=== PATIENT | female | born 1945 | race Caucasian/White ===

== ENCOUNTER 2019-12-20 05:10 | Inpatient (IN) | payer MEDICARE, SELFPAY ==
[2019-12-20] VITALS (53 sets, daily range): BP systolic 105–157; BP diastolic 70–99; PULSE 119–141; RESP 15–37; TEMP 36.2–36.6; O2SAT 89–99; BMI 46.5
--- NOTE | 2019-12-20 05:12 | ED_ITS ---
HPI - SOB/Dyspnea <Mark Flowers DO - Last Filed: 12/21/19 00:46> General Chief Complaint: Upper Respiratory Symptoms Stated Complaint: difficulty breathing Time Seen by Provider: 12/20/19 05:10 Source: patient Mode of arrival: Ambulatory Limitations: no limitations History of Present Illness HPI Narrative: 74F former smoker with chief complaint of 2-3 days of progressive shortness of breath presents with her . She denies dizziness, weakness, or chest pain. She's had no fever, chills, or cough. She denies N/V/D. She denies any history of the same. She denies new medications or dietary change. She denies any exertional change or worsening with laying flat. She denies weight change. MD Complaint: shortness of breath Onset (ago): day(s) Severity: moderate Consistency/Duration: constant Relieving factors: rest Exacerbating factors: nothing Treatment prior to arrival: none Related Data Home oxygen amount: none Home Medications Medication Instructions Recorded Confirmed albuterol sulfate 1 - 4 puff INHALATION Q4HR PRN 12/20/19 12/20/19 amlodipine 5 mg PO DAILY 12/20/19 12/20/19 aspirin 81 mg PO DAILY 12/20/19 12/20/19 hydrochlorothiazide 25 mg PO DAILY 12/20/19 12/20/19 insulin NPH isoph U-100 human See Rx Instructions .ROUTE .COMPLEX 12/20/19 12/20/19 [Humulin N NPH U-100 Insulin] losartan 50 mg PO BID 12/20/19 12/20/19 metformin 1,000 mg PO BID 12/20/19 12/20/19 omeprazole 20 mg PO DAILY 12/20/19 12/20/19 simvastatin 20 mg PO QPM 12/20/19 12/20/19 triamcinolone acetonide 1 applic TOPICAL BID 12/20/19 12/20/19 trospium 20 mg PO BID 12/20/19 12/20/19 Allergies Allergy/AdvReac Type Severity Reaction Status Date / Time clindamycin Allergy Hives Verified 12/20/19 15:41 Penicillins Allergy Hives Verified 12/20/19 15:41 Sulfa (Sulfonamide Allergy Hives Verified 12/20/19 15:41 Antibiotics) lisinopril AdvReac Verified 12/20/19 15:41 Review of Systems <Mark Flowers DO - Last Filed: 12/21/19 00:46> Constitutional Constitutional: Denies chills, Denies fatigue, Denies fever(s), Denies frequent falls, Denies lethargy and Denies weakness Eyes Eyes: Denies change in vision, Denies eye discharge, Denies irritation and Denies loss of vision ENT Ears, Nose, Mouth, and Throat: Denies change in voice, Denies dizziness, Denies neck pain, Denies sore throat and Denies throat swelling Cardiovascular Cardiovascular: Denies chest pain, Denies irregular heart rhythm, Denies lightheadedness, Denies palpitations, Reports dyspnea, Denies dyspnea on exertion and Denies orthopnea Respiratory Respiratory: Denies cough, Reports dyspnea, Denies dyspnea on exertion and Denies wheezing Gastrointestinal Gastrointestinal: Denies abdominal pain, Denies change in bowel habits, Denies diarrhea, Denies nausea and Denies vomiting Musculoskeletal Musculoskeletal: Denies neck pain and Denies numbness Integumentary/Breasts Skin/Breast: Denies pruritus, Denies erythema, Denies rash and Denies wounds Neurologic Neurologic: Denies behavioral changes, Denies confusion, Denies dizziness, Denies frequent falls, Denies loss of vision, Denies numbness and Denies weakness Psychiatric Psychiatric: Denies anxiety, Denies behavioral changes, Denies confusion, Denies depression, Denies homicidal ideation and Denies suicidal ideation Endocrine Endocrine: Denies fatigue, Denies flushing and Denies palpitations Hematologic/Lymphatic Hematologic/Lymphatic: Denies easy bruising Allergic/Immunologic Allergic/Immunologic: Denies urticaria, Denies throat swelling and Denies wheezing Patient History <Mark Flowers DO - Last Filed: 12/21/19 00:46> Medical History (Updated 12/20/19 @ 23:45 by Christina Chávez DO) Asthma (Acute) B12 deficiency (Acute) Carpal tunnel syndrome (Acute) Diabetes mellitus type 2 in obese (Acute) Diabetic polyneuropathy (Acute) GERD (gastroesophageal reflux disease) (Acute) Humeral fracture (Acute) Hyperlipidemia (Acute) Hypertension (Acute) Morbid obesity (Acute) NORM on CPAP (Acute) Osteoarthritis (Acute) Overactive bladder (Acute) Venous insufficiency (Acute) Surgical History (Updated 12/20/19 @ 23:45 by Christina Chávez DO) History of tonsillectomy (Acute) Family History (Updated 12/20/19 @ 23:46 by Christina Chávez DO) Mother No problems noted. Father No problems noted. Social History household members: spouse Smoking Status: Former smoker Smoking Status: Former smoker alcohol intake frequency: 0-2 drinks per day Substance Use Type: does not use Exam <Mark Flowers DO - Last Filed: 12/21/19 00:46> Narrative Exam Narrative: GENERAL: [74] year old patient appears stated age. Well- nourished, well-developed patient, in moderate distress. HEAD: Atraumatic. Normocephalic. EYES: Pupils equal round and reactive. Extraocular motions intact. No scleral icterus. No injection or drainage. ENT: Nose without bleeding, purulent drainage. Throat without erythema, tonsillar hypertrophy or exudate. Airway patent. NECK: Trachea midline. Non tender CARDIOVASCULAR: Tachycardic and irregular rhythm without murmurs, gallops, or rubs. RESPIRATORY: Tachypnea, expiratory wheeze in all watkins. GASTROINTESTINAL: Abdomen soft, non-tender, nondistended. EXTREMITIES: No edema or joint tenderness. BACK: Nontender without deformity or crepitance. No flank tenderness. NEURO: AOx3. SKIN: Pale and clammy Initial Vital Signs Initial Vital Signs: Vital Signs Temperature 97.8 F 12/20/19 05:15 Pulse Rate 140 H 12/20/19 05:15 Respiratory Rate 28 H 12/20/19 05:15 Blood Pressure 157/99 H 12/20/19 05:15 Pulse Oximetry 94 12/20/19 05:15 <Kenya Syde MD - Last Filed: 12/20/19 10:02> Initial Vital Signs Initial Vital Signs: Vital Signs Temperature 97.8 F 12/20/19 05:15 Pulse Rate 140 H 12/20/19 05:15 Respiratory Rate 28 H 12/20/19 05:15 Blood Pressure 157/99 H 12/20/19 05:15 Pulse Oximetry 94 12/20/19 05:15 Scores <Mark Flowers DO - Last Filed: 12/21/19 00:46> PERC Score Age greater than or equal to 50 years: No Heart rate greater than or equal to 100 bpm: Yes Room Air O2 Sat less than 95%: No Unilateral leg swelling: No Recent trauma or surgery: No Hemoptysis: No Prior PE or DVT: No Hormone Use: No Total PERC Score: 1 Wells' Criteria for PE Clinical signs and symptoms of DVT: No PE is #1 Dx or equally likely: No Heart rate > 100: Yes Immobilization at least 3 days or surg in previous 4 weeks: No History of PE or DVT: No Hemoptysis: No Malignancy w/Treatment within 6 months or palliative: No Wells' PE Score total: 1.5 Course <Mark Flowers DO - Last Filed: 12/21/19 00:46> Course Course Narrative: Ddimer elevated, but normal when corrected for age. Orders Ordered: Acetaminophen (Tylenol) 650 mg PO Q6HR PRN PRN Reason: Fever/Mild Pain (1-3) Al Hydrox/Mg Hydrox/Simethicone (Maalox Plus) 30 ml PO Q6HR PRN PRN Reason: Dyspepsia Amlodipine Besylate (Norvasc) 5 mg PO DAILY [facility] Aspirin (Aspirin Chew) 81 mg PO DAILY [facility] Azithromycin (Zithromax) 500 mg PO DAILY [facility] Stop: 12/23/19 08:59 Bisacodyl (Dulcolax) 10 mg CO DAILY PRN PRN Reason: Constipation Calcium Carbonate (Tums) 1,000 mg PO Q4HR PRN PRN Reason: Dyspepsia Dextrose (D50w) 25 gm IV PRN PRN; Protocol PRN Reason: Hypoglycemia Enoxaparin Sodium (Lovenox) 110 mg SUBCUT BID [facility] Last Admin: 12/20/19 21:11 Dose: 110 mg Documented by: TIEN Furosemide (Lasix) 40 mg IV DAILY [facility] Last Admin: 12/20/19 18:03 Dose: 40 mg Documented by: TIEN Guaifenesin (Mucinex) 1,200 mg PO BID [facility] Last Admin: 12/20/19 21:06 Dose: 1,200 mg Documented by: TIEN Amiodarone HCl/Dextrose (Nexterone) 541 mg in 300.56 mls @ 16.7 mls/hr IV CONT [facility]; Protocol Stop: 01/20/20 06:30 Last Admin: 12/20/19 23:56 Dose: 16.7 ml/hr, 16.7 mls/hr Documented by: Titration: 12/20/19 23:56 Dose: 16.7 ml/hr, 16.7 mls/hr Documented by: Admin: 12/20/19 12:57 Dose: 16.7 ml/hr, 16.7 mls/hr Documented by: MICHEAL Ceftriaxone Sodium/Dextrose (Rocephin) 2 gm in 50 mls @ 100 mls/hr IV Q24H [facility] Insulin Aspart (Novolog Flexpen) 0 unit SUBCUT ACHS [facility]; Protocol Last Admin: 12/20/19 21:08 Dose: 2 unit Documented by: TIEN Cosigned by: SAMUEL Admin: 12/20/19 17:19 Dose: 7 unit Documented by: TIEN Cosigned by: SAMUEL Insulin Glargine (Lantus Solostar (Pen)) 45 unit SUBCUT BID [facility] Last Admin: 12/20/19 21:09 Dose: 45 unit Documented by: TIEN Cosigned by: SAMUEL Levalbuterol HCl (Xopenex) 1.25 mg INH Q4H PRN PRN Reason: Shortness Of Breath Last Admin: 12/20/19 14:12 Dose: 1.25 mg Documented by: MELVINAOX Losartan Potassium (Cozaar) 50 mg PO BID [facility] Last Admin: 12/20/19 21:07 Dose: 50 mg Documented by: TIEN Magnesium Chloride (Slow-Mag) 64 mg PO BID [facility] Last Admin: 12/20/19 21:07 Dose: 64 mg Documented by: TIEN Magnesium Hydroxide (Milk Of Magnesia) 30 ml PO DAILY PRN PRN Reason: Constipation Methylprednisolone (Solu-Medrol 125 Mg Vial) 60 mg IV DAILY [facility] Last Admin: 12/20/19 18:03 Dose: 60 mg Documented by: TIEN Metoprolol Tartrate (Lopressor) 50 mg PO Q6HR [facility] Last Admin: 12/20/19 23:55 Dose: 50 mg Documented by: Admin: 12/20/19 17:19 Dose: 50 mg Documented by: TIEN Naloxone HCl (Narcan) 0.2 mg IV Q2MIN PRN PRN Reason: Opiate Reversal Ondansetron HCl (Zofran) 4 mg IV Q8HR PRN PRN Reason: Nausea And Vomiting Oxybutynin Chloride (Ditropan Xl) 5 mg PO DAILY [facility] Pantoprazole Sodium (Protonix) 20 mg PO 0600 [facility] Promethazine HCl (Phenadoz) 12.5 mg CO Q6HR PRN PRN Reason: Nausea And Vomiting Simvastatin (Zocor) 20 mg PO QPM [facility] Discontinued Medications Albuterol/Ipratropium (Duoneb) 3 ml INH NOW ONE Stop: 12/20/19 06:50 Last Admin: 12/20/19 06:58 Dose: 3 ml Documented by: JUAN CARLOS Diltiazem HCl (Cardizem) 20 mg IV NOW ONE Stop: 12/20/19 05:18 Last Admin: 12/20/19 05:31 Dose: 20 mg Documented by: JUAN CARLOS Enoxaparin Sodium (Lovenox) 125 mg SUBCUT BID [facility] Last Admin: 12/20/19 08:44 Dose: 125 mg Documented by: MARY LOU Enoxaparin Sodium (Lovenox) 40 mg SUBCUT DAILY [facility] Furosemide (Lasix) 40 mg IV NOW ONE Stop: 12/20/19 06:50 Last Admin: 12/20/19 06:58 Dose: 40 mg Documented by: JUAN CARLOS Amiodarone HCl/Dextrose (Nexterone) 150 mg in 100 mls @ 600 mls/hr IV NOW ONE; Protocol Stop: 12/20/19 06:02 Last Infusion: 12/20/19 06:27 Dose: 0 mls/hr Documented by: JUAN CARLOS Admin: 12/20/19 06:09 Dose: 600 mls/hr Documented by: JUAN CARLOS Amiodarone HCl/Dextrose (Nexterone) 360 mg in 200 mls @ 33.333 mls/hr IV NOW ONE; Protocol Stop: 12/20/19 11:52 Last Titration: 12/20/19 10:46 Dose: 33.33 mls/hr, 33.33 mls/hr Documented by: MARY LOU Admin: 12/20/19 06:28 Dose: 33.333 mls/hr, 33.33 mls/hr Documented by: JUAN CARLOS Ceftriaxone Sodium/Dextrose (Rocephin) 2 gm in 50 mls @ 100 mls/hr IV NOW ONE Stop: 12/20/19 08:39 Last Infusion: 12/20/19 09:47 Dose: 0 mls/hr Documented by: MARY LOU Admin: 12/20/19 09:13 Dose: 100 mls/hr Documented by: MARY LOU Azithromycin 500 mg/ Dextrose 250 mls @ 250 mls/hr IV NOW ONE Stop: 12/20/19 08:11 Last Infusion: 12/20/19 09:07 Dose: 0 mls/hr Documented by: MARY LOU Admin: 12/20/19 08:43 Dose: 250 mls/hr Documented by: MARY LOU Magnesium Sulfate (Magnesium Sulfate) 2 gm in 50 mls @ 25 mls/hr IV NOW ONE Stop: 12/20/19 10:59 Last Infusion: 12/20/19 10:47 Dose: 25 mls/hr Documented by: MARY LOU Cosigned by: ZACK Admin: 12/20/19 10:27 Dose: 25 mls/hr Documented by: MARY LOU Cosigned by: ERIC Azithromycin 500 mg/ Dextrose 250 mls @ 250 mls/hr IV NOW ONE Stop: 12/20/19 10:14 Last Admin: 12/20/19 12:00 Dose: 250 mls/hr Documented by: MICHEAL Influenza Virus Vaccine (Flu Hd Vaccine) 0.7 ml IM .ONCE ONE Stop: 12/20/19 13:01 Last Admin: 12/20/19 17:20 Dose: Not Given Documented by: TIEN Insulin Human NPH (Humulin N) 66 unit SUBCUT DAILY [facility] Insulin Human NPH (Humulin N) 50 unit SUBCUT BEDTIME [facility] Insulin Human Regular (Humulin R) 10 unit IV NOW ONE Stop: 12/20/19 13:12 Last Admin: 12/20/19 14:50 Dose: 10 unit Documented by: MICHEAL Cosigned by: JENNIFER Metoprolol Tartrate (Lopressor) 5 mg IV Q5M [facility] Stop: 12/20/19 09:11 Last Admin: 12/20/19 09:35 Dose: 5 mg Documented by: MARY LOU Admin: 12/20/19 09:27 Dose: 5 mg Documented by: MARY LOU Admin: 12/20/19 09:11 Dose: 5 mg Documented by: MARY LOU Potassium Chloride (Klor-Con M20) 40 meq PO NOW ONE Stop: 12/20/19 09:01 Last Admin: 12/20/19 09:11 Dose: 40 meq Documented by: KBROTEM Reevaluation(s) Reevaluation #1: Cardizem 20 mg does little to affect the patient's heart rate, however now it appears much more regular and patient is no longer clammy urine significant work of breathing Time: 05:51 Reevaluation #2: patient clinically improved, but HR still 135, given Amio 150 over 10 minutes and drip started. Patient shows little change on Amio, awaiting RT for Gaurav Brand ordered Vital Signs Vital signs: Vital Signs - 8 hr 12/20/19 05:15 12/20/19 06:00 12/20/19 06:31 Temperature 97.8 F Pulse Rate 140 H 141 H 135 H Respiratory Rate 28 H 18 21 Blood Pressure 157/99 H 139/85 Pulse Oximetry 94 92 92 12/20/19 06:33 12/20/19 06:47 12/20/19 07:00 Temperature Pulse Rate 135 H 135 H 135 H Respiratory Rate 22 28 H 22 Blood Pressure 139/87 141/98 H 140/98 H Pulse Oximetry 91 93 99 12/20/19 07:30 12/20/19 08:00 12/20/19 08:30 Temperature Pulse Rate 139 H 139 H 137 H Respiratory Rate 30 H Blood Pressure 150/90 H 135/96 H Pulse Oximetry 93 95 94 12/20/19 09:00 Temperature Pulse Rate 136 H Respiratory Rate 37 H Blood Pressure Pulse Oximetry 93 <Kenya Syed MD - Last Filed: 12/20/19 10:02> Orders Ordered: Acetaminophen (Tylenol) 650 mg PO Q6HR PRN PRN Reason: Fever/Mild Pain (1-3) Al Hydrox/Mg Hydrox/Simethicone (Maalox Plus) 30 ml PO Q6HR PRN PRN Reason: Dyspepsia Amlodipine Besylate (Norvasc) 5 mg PO DAILY [facility] Aspirin (Aspirin Chew) 81 mg PO DAILY [facility] Azithromycin (Zithromax) 500 mg PO DAILY [facility] Stop: 12/23/19 08:59 Bisacodyl (Dulcolax) 10 mg CO DAILY PRN PRN Reason: Constipation Calcium Carbonate (Tums) 1,000 mg PO Q4HR PRN PRN Reason: Dyspepsia Dextrose (D50w) 25 gm IV PRN PRN; Protocol PRN Reason: Hypoglycemia Enoxaparin Sodium (Lovenox) 110 mg SUBCUT BID [facility] Last Admin: 12/20/19 21:11 Dose: 110 mg Documented by: TIEN Furosemide (Lasix) 40 mg IV DAILY [facility] Last Admin: 12/20/19 18:03 Dose: 40 mg Documented by: TIEN Guaifenesin (Mucinex) 1,200 mg PO BID [facility] Last Admin: 12/20/19 21:06 Dose: 1,200 mg Documented by: TIEN Amiodarone HCl/Dextrose (Nexterone) 541 mg in 300.56 mls @ 16.7 mls/hr IV CONT [facility]; Protocol Stop: 01/20/20 06:30 Last Admin: 12/20/19 23:56 Dose: 16.7 ml/hr, 16.7 mls/hr Documented by: Titration: 12/20/19 23:56 Dose: 16.7 ml/hr, 16.7 mls/hr Documented by: Admin: 12/20/19 12:57 Dose: 16.7 ml/hr, 16.7 mls/hr Documented by: MICHEAL Ceftriaxone Sodium/Dextrose (Rocephin) 2 gm in 50 mls @ 100 mls/hr IV Q24H [facility] Insulin Aspart (Novolog Flexpen) 0 unit SUBCUT ACHS [facility]; Protocol Last Admin: 12/20/19 21:08 Dose: 2 unit Documented by: TIEN Cosigned by: SAMUEL Admin: 12/20/19 17:19 Dose: 7 unit Documented by: TIEN Cosigned by: SAMUEL Insulin Glargine (Lantus Solostar (Pen)) 45 unit SUBCUT BID [facility] Last Admin: 12/20/19 21:09 Dose: 45 unit Documented by: TIEN Cosigned by: SAMUEL Levalbuterol HCl (Xopenex) 1.25 mg INH Q4H PRN PRN Reason: Shortness Of Breath Last Admin: 12/20/19 14:12 Dose: 1.25 mg Documented by: MELVINAOX Losartan Potassium (Cozaar) 50 mg PO BID [facility] Last Admin: 12/20/19 21:07 Dose: 50 mg Documented by: TIEN Magnesium Chloride (Slow-Mag) 64 mg PO BID [facility] Last Admin: 12/20/19 21:07 Dose: 64 mg Documented by: TIEN Magnesium Hydroxide (Milk Of Magnesia) 30 ml PO DAILY PRN PRN Reason: Constipation Methylprednisolone (Solu-Medrol 125 Mg Vial) 60 mg IV DAILY [facility] Last Admin: 12/20/19 18:03 Dose: 60 mg Documented by: TIEN Metoprolol Tartrate (Lopressor) 50 mg PO Q6HR [facility] Last Admin: 12/20/19 23:55 Dose: 50 mg Documented by: Admin: 12/20/19 17:19 Dose: 50 mg Documented by: TIEN Naloxone HCl (Narcan) 0.2 mg IV Q2MIN PRN PRN Reason: Opiate Reversal Ondansetron HCl (Zofran) 4 mg IV Q8HR PRN PRN Reason: Nausea And Vomiting Oxybutynin Chloride (Ditropan Xl) 5 mg PO DAILY [facility] Pantoprazole Sodium (Protonix) 20 mg PO 0600 [facility] Promethazine HCl (Phenadoz) 12.5 mg CO Q6HR PRN PRN Reason: Nausea And Vomiting Simvastatin (Zocor) 20 mg PO QPM [facility] Discontinued Medications Albuterol/Ipratropium (Duoneb) 3 ml INH NOW ONE Stop: 12/20/19 06:50 Last Admin: 12/20/19 06:58 Dose: 3 ml Documented by: JUAN CARLOS Diltiazem HCl (Cardizem) 20 mg IV NOW ONE Stop: 12/20/19 05:18 Last Admin: 12/20/19 05:31 Dose: 20 mg Documented by: JUAN CARLOS Enoxaparin Sodium (Lovenox) 125 mg SUBCUT BID [facility] Last Admin: 12/20/19 08:44 Dose: 125 mg Documented by: JEREMYM Enoxaparin Sodium (Lovenox) 40 mg SUBCUT DAILY [facility] Furosemide (Lasix) 40 mg IV NOW ONE Stop: 12/20/19 06:50 Last Admin: 12/20/19 06:58 Dose: 40 mg Documented by: JUAN CARLOS Amiodarone HCl/Dextrose (Nexterone) 150 mg in 100 mls @ 600 mls/hr IV NOW ONE; Protocol Stop: 12/20/19 06:02 Last Infusion: 12/20/19 06:27 Dose: 0 mls/hr Documented by: JUAN CARLOS Admin: 12/20/19 06:09 Dose: 600 mls/hr Documented by: JUAN CARLOS Amiodarone HCl/Dextrose (Nexterone) 360 mg in 200 mls @ 33.333 mls/hr IV NOW ONE; Protocol Stop: 12/20/19 11:52 Last Titration: 12/20/19 10:46 Dose: 33.33 mls/hr, 33.33 mls/hr Documented by: MARY LOU Admin: 12/20/19 06:28 Dose: 33.333 mls/hr, 33.33 mls/hr Documented by: JUAN CARLOS Ceftriaxone Sodium/Dextrose (Rocephin) 2 gm in 50 mls @ 100 mls/hr IV NOW ONE Stop: 12/20/19 08:39 Last Infusion: 12/20/19 09:47 Dose: 0 mls/hr Documented by: MARY LOU Admin: 12/20/19 09:13 Dose: 100 mls/hr Documented by: MARY LOU Azithromycin 500 mg/ Dextrose 250 mls @ 250 mls/hr IV NOW ONE Stop: 12/20/19 08:11 Last Infusion: 12/20/19 09:07 Dose: 0 mls/hr Documented by: MARY LOU Admin: 12/20/19 08:43 Dose: 250 mls/hr Documented by: MARY LOU Magnesium Sulfate (Magnesium Sulfate) 2 gm in 50 mls @ 25 mls/hr IV NOW ONE Stop: 12/20/19 10:59 Last Infusion: 12/20/19 10:47 Dose: 25 mls/hr Documented by: MARY LOU Cosigned by: ZACK Admin: 12/20/19 10:27 Dose: 25 mls/hr Documented by: MARY LOU Cosigned by: ERIC Azithromycin 500 mg/ Dextrose 250 mls @ 250 mls/hr IV NOW ONE Stop: 12/20/19 10:14 Last Admin: 12/20/19 12:00 Dose: 250 mls/hr Documented by: MICHEAL Influenza Virus Vaccine (Flu Hd Vaccine) 0.7 ml IM .ONCE ONE Stop: 12/20/19 13:01 Last Admin: 12/20/19 17:20 Dose: Not Given Documented by: TIEN Insulin Human NPH (Humulin N) 66 unit SUBCUT DAILY [facility] Insulin Human NPH (Humulin N) 50 unit SUBCUT BEDTIME [facility] Insulin Human Regular (Humulin R) 10 unit IV NOW ONE Stop: 12/20/19 13:12 Last Admin: 12/20/19 14:50 Dose: 10 unit Documented by: MICHEAL Cosigned by: JENNIFER Metoprolol Tartrate (Lopressor) 5 mg IV Q5M [facility] Stop: 12/20/19 09:11 Last Admin: 12/20/19 09:35 Dose: 5 mg Documented by: MARY LOU Admin: 12/20/19 09:27 Dose: 5 mg Documented by: MARY LOU Admin: 12/20/19 09:11 Dose: 5 mg Documented by: MARY LOU Potassium Chloride (Klor-Con M20) 40 meq PO NOW ONE Stop: 12/20/19 09:01 Last Admin: 12/20/19 09:11 Dose: 40 meq Documented by: MARY LOU Vital Signs Vital signs: Vital Signs - 8 hr 12/20/19 05:15 12/20/19 06:00 12/20/19 06:31 Temperature 97.8 F Pulse Rate 140 H 141 H 135 H Respiratory Rate 28 H 18 21 Blood Pressure 157/99 H 139/85 Pulse Oximetry 94 92 92 12/20/19 06:33 12/20/19 06:47 12/20/19 07:00 Temperature Pulse Rate 135 H 135 H 135 H Respiratory Rate 22 28 H 22 Blood Pressure 139/87 141/98 H 140/98 H Pulse Oximetry 91 93 99 12/20/19 07:30 12/20/19 08:00 12/20/19 08:30 Temperature Pulse Rate 139 H 139 H 137 H Respiratory Rate 30 H Blood Pressure 150/90 H 135/96 H Pulse Oximetry 93 95 94 12/20/19 09:00 Temperature Pulse Rate 136 H Respiratory Rate 37 H Blood Pressure Pulse Oximetry 93 MDM - SOB/Dyspnea <Mark Flowers DO - Last Filed: 12/21/19 00:46> Lab Data Result diagrams: 12/20/19 05:26 12/20/19 18:07 Labs: Lab Results 12/20/19 12/20/19 12/20/19 Range/Units 05:26 05:26 05:26 WBC 14.4 H (4.5-11.0) X10^3/uL RBC 4.04 (4.0-5.2) X10^6/uL Hgb 12.8 (12.0-16.0) g/dL Hct 37.8 (36-46) % MCV 93.7 (80-100) fL MCH 31.7 (26-34) PG MCHC 33.8 (30-36) % RDW 13.3 (11.6-14.8) % Plt Count 160 (150-400) X10^3/uL Neut % (Auto) 62.8 (50-75) % Lymph % (Auto) 28.5 (25-40) % Dane % (Auto) 7.4 (3-14) % Eos % (Auto) 0.5 L (2-4) % Baso % (Auto) 0.8 (0-2) % Neut # (Auto) 9100 H (8873-3746) /uL Lymph # (Auto) 4100 (9718-0201) /uL Dane # (Auto) 1100 H (0-900) /uL Eos # (Auto) 100 (0-450) /uL Baso # (Auto) 100 (0-100) /uL PT 13.1 H (10.1-12.7) SECONDS INR 1.1 (0.9-1.3) D-Dimer 671 H (<230) ng/mL Sodium 136 L (137-145) mmol/L Potassium 3.7 (3.4-5.1) mmol/L Chloride 102 (98-107) mmol/L Carbon Dioxide 24 (22-32) mmol/L BUN 13 (7-17) mg/dL Creatinine 0.73 (0.52-1.04) mg/dL Estimated GFR > 60.0 (>60) mL/min BUN/Creatinine Ratio 17.8 (6-22) Glucose 356 H (80-110) mg/dL Lactate (0.7-2.1) mmol/L Calcium 9.1 (8.4-10.2) mg/dL Magnesium 1.5 L (1.6-2.3) mg/dL Total Bilirubin 1.9 H (0.2-1.3) mg/dL AST 51 H (14-36) IU/L ALT 43 H (<35) IU/L Alkaline Phosphatase 112 (38-126) U/L Total Creatine Kinase 102 (30-135) U/L CK-MB (CK-2) 1.40 (<2.37) ng/mL CK-MB (CK-2) Rel Index 1.4 L (1.5-5.0) % Troponin I 0.025 (0.01-0.034) ng/mL NT-Pro-B Natriuret Pep (<125) pg/mL Total Protein 6.7 (6.3-8.2) g/dL Albumin 4.1 (3.5-5.0) g/dL Globulin 2.6 (1.7-4.1) g/dL Albumin/Globulin Ratio 1.6 (1.0-2.8) Procalcitonin (<0.5) ng/mL TSH (0.47-4.68) uIU/mL Free T4 (0.78-2.19) ng/dL Urine Color Urine Appearance Urine pH (4.5-8.0) Ur Specific [place] (1.000-1.035) Urine Protein (Negative) Urine Glucose (UA) (Negative) g/dL Urine Ketones (NEGATIVE) Urine Occult Blood (Negative) Urine Nitrate (Negative) Urine Bilirubin (NEGATIVE) Urine Urobilinogen (0.2) E.U./dL Ur Leukocyte Esterase (NEGATIVE) Urine RBC (0-5/HPF) Urine WBC (0-5/HPF) Ur Squamous Epith Cells (0-5/HPF) Amorphous Sediment Urine Bacteria (None) Ur Culture Indicated? COVID-19 PCR (Negative) 12/20/19 12/20/19 12/20/19 Range/Units 05:26 05:26 05:26 WBC (4.5-11.0) X10^3/uL RBC (4.0-5.2) X10^6/uL Hgb (12.0-16.0) g/dL Hct (36-46) % MCV (80-100) fL MCH (26-34) PG MCHC (30-36) % RDW (11.6-14.8) % Plt Count (150-400) X10^3/uL Neut % (Auto) (50-75) % Lymph % (Auto) (25-40) % Dane % (Auto) (3-14) % Eos % (Auto) (2-4) % Baso % (Auto) (0-2) % Neut # (Auto) (1900-0370) /uL Lymph # (Auto) (9372-1059) /uL Dane # (Auto) (0-900) /uL Eos # (Auto) (0-450) /uL Baso # (Auto) (0-100) /uL PT (10.1-12.7) SECONDS INR (0.9-1.3) D-Dimer (<230) ng/mL Sodium (137-145) mmol/L Potassium (3.4-5.1) mmol/L Chloride (98-107) mmol/L Carbon Dioxide (22-32) mmol/L BUN (7-17) mg/dL Creatinine (0.52-1.04) mg/dL Estimated GFR (>60) mL/min BUN/Creatinine Ratio (6-22) Glucose (80-110) mg/dL Lactate (0.7-2.1) mmol/L Calcium (8.4-10.2) mg/dL Magnesium (1.6-2.3) mg/dL Total Bilirubin (0.2-1.3) mg/dL AST (14-36) IU/L ALT (<35) IU/L Alkaline Phosphatase (38-126) U/L Total Creatine Kinase (30-135) U/L CK-MB (CK-2) (<2.37) ng/mL CK-MB (CK-2) Rel Index (1.5-5.0) % Troponin I (0.01-0.034) ng/mL NT-Pro-B Natriuret Pep 1570 H (<125) pg/mL Total Protein (6.3-8.2) g/dL Albumin (3.5-5.0) g/dL Globulin (1.7-4.1) g/dL Albumin/Globulin Ratio (1.0-2.8) Procalcitonin 0.29 (<0.5) ng/mL TSH 5.40 H (0.47-4.68) uIU/mL Free T4 (0.78-2.19) ng/dL Urine Color Urine Appearance Urine pH (4.5-8.0) Ur Specific [place] (1.000-1.035) Urine Protein (Negative) Urine Glucose (UA) (Negative) g/dL Urine Ketones (NEGATIVE) Urine Occult Blood (Negative) Urine Nitrate (Negative) Urine Bilirubin (NEGATIVE) Urine Urobilinogen (0.2) E.U./dL Ur Leukocyte Esterase (NEGATIVE) Urine RBC (0-5/HPF) Urine WBC (0-5/HPF) Ur Squamous Epith Cells (0-5/HPF) Amorphous Sediment Urine Bacteria (None) Ur Culture Indicated? COVID-19 PCR (Negative) 12/20/19 12/20/19 12/20/19 Range/Units 05:26 06:10 08:15 WBC (4.5-11.0) X10^3/uL RBC (4.0-5.2) X10^6/uL Hgb (12.0-16.0) g/dL Hct (36-46) % MCV (80-100) fL MCH (26-34) PG MCHC (30-36) % RDW (11.6-14.8) % Plt Count (150-400) X10^3/uL Neut % (Auto) (50-75) % Lymph % (Auto) (25-40) % Dane % (Auto) (3-14) % Eos % (Auto) (2-4) % Baso % (Auto) (0-2) % Neut # (Auto) (6976-2519) /uL Lymph # (Auto) (7111-6430) /uL Dane # (Auto) (0-900) /uL Eos # (Auto) (0-450) /uL Baso # (Auto) (0-100) /uL PT (10.1-12.7) SECONDS INR (0.9-1.3) D-Dimer (<230) ng/mL Sodium (137-145) mmol/L Potassium (3.4-5.1) mmol/L Chloride (98-107) mmol/L Carbon Dioxide (22-32) mmol/L BUN (7-17) mg/dL Creatinine (0.52-1.04) mg/dL Estimated GFR (>60) mL/min BUN/Creatinine Ratio (6-22) Glucose (80-110) mg/dL Lactate (0.7-2.1) mmol/L Calcium (8.4-10.2) mg/dL Magnesium (1.6-2.3) mg/dL Total Bilirubin (0.2-1.3) mg/dL AST (14-36) IU/L ALT (<35) IU/L Alkaline Phosphatase (38-126) U/L Total Creatine Kinase (30-135) U/L CK-MB (CK-2) (<2.37) ng/mL CK-MB (CK-2) Rel Index (1.5-5.0) % Troponin I (0.01-0.034) ng/mL NT-Pro-B Natriuret Pep (<125) pg/mL Total Protein (6.3-8.2) g/dL Albumin (3.5-5.0) g/dL Globulin (1.7-4.1) g/dL Albumin/Globulin Ratio (1.0-2.8) Procalcitonin (<0.5) ng/mL TSH (0.47-4.68) uIU/mL Free T4 1.20 (0.78-2.19) ng/dL Urine Color Yellow Urine Appearance Clear Urine pH 6.0 (4.5-8.0) Ur Specific [place] 1.010 (1.000-1.035) Urine Protein Negative (Negative) Urine Glucose (UA) 2+ H (Negative) g/dL Urine Ketones 1+ H (NEGATIVE) Urine Occult Blood Trace-lysed (Negative) Urine Nitrate Negative (Negative) Urine Bilirubin Negative (NEGATIVE) Urine Urobilinogen 0.2 (0.2) E.U./dL Ur Leukocyte Esterase Negative (NEGATIVE) Urine RBC 0-1/hpf (0-5/HPF) Urine WBC 1-5/hpf (0-5/HPF) Ur Squamous Epith Cells 0-1 /hpf (0-5/HPF) Amorphous Sediment 1+ Urine Bacteria None seen (None) Ur Culture Indicated? Specimen cultured COVID-19 PCR Negative (Negative) 12/20/19 12/20/19 Range/Units 08:20 08:35 WBC (4.5-11.0) X10^3/uL RBC (4.0-5.2) X10^6/uL Hgb (12.0-16.0) g/dL Hct (36-46) % MCV (80-100) fL MCH (26-34) PG MCHC (30-36) % RDW (11.6-14.8) % Plt Count (150-400) X10^3/uL Neut % (Auto) (50-75) % Lymph % (Auto) (25-40) % Dane % (Auto) (3-14) % Eos % (Auto) (2-4) % Baso % (Auto) (0-2) % Neut # (Auto) (9071-1090) /uL Lymph # (Auto) (1910-5656) /uL Dane # (Auto) (0-900) /uL Eos # (Auto) (0-450) /uL Baso # (Auto) (0-100) /uL PT (10.1-12.7) SECONDS INR (0.9-1.3) D-Dimer (<230) ng/mL Sodium (137-145) mmol/L Potassium (3.4-5.1) mmol/L Chloride (98-107) mmol/L Carbon Dioxide (22-32) mmol/L BUN (7-17) mg/dL Creatinine (0.52-1.04) mg/dL Estimated GFR (>60) mL/min BUN/Creatinine Ratio (6-22) Glucose (80-110) mg/dL Lactate 2.1 (0.7-2.1) mmol/L Calcium (8.4-10.2) mg/dL Magnesium (1.6-2.3) mg/dL Total Bilirubin (0.2-1.3) mg/dL AST (14-36) IU/L ALT (<35) IU/L Alkaline Phosphatase (38-126) U/L Total Creatine Kinase (30-135) U/L CK-MB (CK-2) (<2.37) ng/mL CK-MB (CK-2) Rel Index (1.5-5.0) % Troponin I (0.01-0.034) ng/mL NT-Pro-B Natriuret Pep (<125) pg/mL Total Protein (6.3-8.2) g/dL Albumin (3.5-5.0) g/dL Globulin (1.7-4.1) g/dL Albumin/Globulin Ratio (1.0-2.8) Procalcitonin (<0.5) ng/mL TSH (0.47-4.68) uIU/mL Free T4 (0.78-2.19) ng/dL Urine Color Urine Appearance Urine pH (4.5-8.0) Ur Specific [place] (1.000-1.035) Urine Protein (Negative) Urine Glucose (UA) (Negative) g/dL Urine Ketones (NEGATIVE) Urine Occult Blood (Negative) Urine Nitrate (Negative) Urine Bilirubin (NEGATIVE) Urine Urobilinogen (0.2) E.U./dL Ur Leukocyte Esterase (NEGATIVE) Urine RBC (0-5/HPF) Urine WBC (0-5/HPF) Ur Squamous Epith Cells (0-5/HPF) Amorphous Sediment Urine Bacteria (None) Ur Culture Indicated? COVID-19 PCR Negative (Negative) Urine Dip Bedside Urine Glucose 250 mg/dl Bedside Urine Bilirubin - Negative Bedside Urine Ketone + 15 Urine Specific [place] 1.010 Bedside Urine Occult Blood - Negative Bedside Urine pH 6.0 Bedside Urine Protein - Negative Bedside Urine Urobilinogen +/- 1mg Bedside Urine Nitrite - Negative Bedside Urine Leukocytes - Negative Esterase <Kenya Syed MD - Last Filed: 12/20/19 10:02> Medical Records Attestation: I reviewed the patient's medical records. Lab Data Attestation: I reviewed the patient's lab results. Labs: Lab Results 12/20/19 12/20/19 12/20/19 Range/Units 05:26 05:26 05:26 WBC 14.4 H (4.5-11.0) X10^3/uL RBC 4.04 (4.0-5.2) X10^6/uL Hgb 12.8 (12.0-16.0) g/dL Hct 37.8 (36-46) % MCV 93.7 (80-100) fL MCH 31.7 (26-34) PG MCHC 33.8 (30-36) % RDW 13.3 (11.6-14.8) % Plt Count 160 (150-400) X10^3/uL Neut % (Auto) 62.8 (50-75) % Lymph % (Auto) 28.5 (25-40) % Dane % (Auto) 7.4 (3-14) % Eos % (Auto) 0.5 L (2-4) % Baso % (Auto) 0.8 (0-2) % Neut # (Auto) 9100 H (7151-8203) /uL Lymph # (Auto) 4100 (8994-0767) /uL Dane # (Auto) 1100 H (0-900) /uL Eos # (Auto) 100 (0-450) /uL Baso # (Auto) 100 (0-100) /uL PT 13.1 H (10.1-12.7) SECONDS INR 1.1 (0.9-1.3) D-Dimer 671 H (<230) ng/mL Sodium 136 L (137-145) mmol/L Potassium 3.7 (3.4-5.1) mmol/L Chloride 102 (98-107) mmol/L Carbon Dioxide 24 (22-32) mmol/L BUN 13 (7-17) mg/dL Creatinine 0.73 (0.52-1.04) mg/dL Estimated GFR > 60.0 (>60) mL/min BUN/Creatinine Ratio 17.8 (6-22) Glucose 356 H (80-110) mg/dL Lactate (0.7-2.1) mmol/L Calcium 9.1 (8.4-10.2) mg/dL Magnesium 1.5 L (1.6-2.3) mg/dL Total Bilirubin 1.9 H (0.2-1.3) mg/dL AST 51 H (14-36) IU/L ALT 43 H (<35) IU/L Alkaline Phosphatase 112 (38-126) U/L Total Creatine Kinase 102 (30-135) U/L CK-MB (CK-2) 1.40 (<2.37) ng/mL CK-MB (CK-2) Rel Index 1.4 L (1.5-5.0) % Troponin I 0.025 (0.01-0.034) ng/mL NT-Pro-B Natriuret Pep (<125) pg/mL Total Protein 6.7 (6.3-8.2) g/dL Albumin 4.1 (3.5-5.0) g/dL Globulin 2.6 (1.7-4.1) g/dL Albumin/Globulin Ratio 1.6 (1.0-2.8) Procalcitonin (<0.5) ng/mL TSH (0.47-4.68) uIU/mL Free T4 (0.78-2.19) ng/dL Urine Color Urine Appearance Urine pH (4.5-8.0) Ur Specific [place] (1.000-1.035) Urine Protein (Negative) Urine Glucose (UA) (Negative) g/dL Urine Ketones (NEGATIVE) Urine Occult Blood (Negative) Urine Nitrate (Negative) Urine Bilirubin (NEGATIVE) Urine Urobilinogen (0.2) E.U./dL Ur Leukocyte Esterase (NEGATIVE) Urine RBC (0-5/HPF) Urine WBC (0-5/HPF) Ur Squamous Epith Cells (0-5/HPF) Amorphous Sediment Urine Bacteria (None) Ur Culture Indicated? COVID-19 PCR (Negative) 12/20/19 12/20/19 12/20/19 Range/Units 05:26 05:26 05:26 WBC (4.5-11.0) X10^3/uL RBC (4.0-5.2) X10^6/uL Hgb (12.0-16.0) g/dL Hct (36-46) % MCV (80-100) fL MCH (26-34) PG MCHC (30-36) % RDW (11.6-14.8) % Plt Count (150-400) X10^3/uL Neut % (Auto) (50-75) % Lymph % (Auto) (25-40) % Dane % (Auto) (3-14) % Eos % (Auto) (2-4) % Baso % (Auto) (0-2) % Neut # (Auto) (9092-6160) /uL Lymph # (Auto) (8585-2631) /uL Dane # (Auto) (0-900) /uL Eos # (Auto) (0-450) /uL Baso # (Auto) (0-100) /uL PT (10.1-12.7) SECONDS INR (0.9-1.3) D-Dimer (<230) ng/mL Sodium (137-145) mmol/L Potassium (3.4-5.1) mmol/L Chloride (98-107) mmol/L Carbon Dioxide (22-32) mmol/L BUN (7-17) mg/dL Creatinine (0.52-1.04) mg/dL Estimated GFR (>60) mL/min BUN/Creatinine Ratio (6-22) Glucose (80-110) mg/dL Lactate (0.7-2.1) mmol/L Calcium (8.4-10.2) mg/dL Magnesium (1.6-2.3) mg/dL Total Bilirubin (0.2-1.3) mg/dL AST (14-36) IU/L ALT (<35) IU/L Alkaline Phosphatase (38-126) U/L Total Creatine Kinase (30-135) U/L CK-MB (CK-2) (<2.37) ng/mL CK-MB (CK-2) Rel Index (1.5-5.0) % Troponin I (0.01-0.034) ng/mL NT-Pro-B Natriuret Pep 1570 H (<125) pg/mL Total Protein (6.3-8.2) g/dL Albumin (3.5-5.0) g/dL Globulin (1.7-4.1) g/dL Albumin/Globulin Ratio (1.0-2.8) Procalcitonin 0.29 (<0.5) ng/mL TSH 5.40 H (0.47-4.68) uIU/mL Free T4 (0.78-2.19) ng/dL Urine Color Urine Appearance Urine pH (4.5-8.0) Ur Specific [place] (1.000-1.035) Urine Protein (Negative) Urine Glucose (UA) (Negative) g/dL Urine Ketones (NEGATIVE) Urine Occult Blood (Negative) Urine Nitrate (Negative) Urine Bilirubin (NEGATIVE) Urine Urobilinogen (0.2) E.U./dL Ur Leukocyte Esterase (NEGATIVE) Urine RBC (0-5/HPF) Urine WBC (0-5/HPF) Ur Squamous Epith Cells (0-5/HPF) Amorphous Sediment Urine Bacteria (None) Ur Culture Indicated? COVID-19 PCR (Negative) 12/20/19 12/20/19 12/20/19 Range/Units 05:26 06:10 08:15 WBC (4.5-11.0) X10^3/uL RBC (4.0-5.2) X10^6/uL Hgb (12.0-16.0) g/dL Hct (36-46) % MCV (80-100) fL MCH (26-34) PG MCHC (30-36) % RDW (11.6-14.8) % Plt Count (150-400) X10^3/uL Neut % (Auto) (50-75) % Lymph % (Auto) (25-40) % Dane % (Auto) (3-14) % Eos % (Auto) (2-4) % Baso % (Auto) (0-2) % Neut # (Auto) (3059-1110) /uL Lymph # (Auto) (7414-6856) /uL Dane # (Auto) (0-900) /uL Eos # (Auto) (0-450) /uL Baso # (Auto) (0-100) /uL PT (10.1-12.7) SECONDS INR (0.9-1.3) D-Dimer (<230) ng/mL Sodium (137-145) mmol/L Potassium (3.4-5.1) mmol/L Chloride (98-107) mmol/L Carbon Dioxide (22-32) mmol/L BUN (7-17) mg/dL Creatinine (0.52-1.04) mg/dL Estimated GFR (>60) mL/min BUN/Creatinine Ratio (6-22) Glucose (80-110) mg/dL Lactate (0.7-2.1) mmol/L Calcium (8.4-10.2) mg/dL Magnesium (1.6-2.3) mg/dL Total Bilirubin (0.2-1.3) mg/dL AST (14-36) IU/L ALT (<35) IU/L Alkaline Phosphatase (38-126) U/L Total Creatine Kinase (30-135) U/L CK-MB (CK-2) (<2.37) ng/mL CK-MB (CK-2) Rel Index (1.5-5.0) % Troponin I (0.01-0.034) ng/mL NT-Pro-B Natriuret Pep (<125) pg/mL Total Protein (6.3-8.2) g/dL Albumin (3.5-5.0) g/dL Globulin (1.7-4.1) g/dL Albumin/Globulin Ratio (1.0-2.8) Procalcitonin (<0.5) ng/mL TSH (0.47-4.68) uIU/mL Free T4 1.20 (0.78-2.19) ng/dL Urine Color Yellow Urine Appearance Clear Urine pH 6.0 (4.5-8.0) Ur Specific [place] 1.010 (1.000-1.035) Urine Protein Negative (Negative) Urine Glucose (UA) 2+ H (Negative) g/dL Urine Ketones 1+ H (NEGATIVE) Urine Occult Blood Trace-lysed (Negative) Urine Nitrate Negative (Negative) Urine Bilirubin Negative (NEGATIVE) Urine Urobilinogen 0.2 (0.2) E.U./dL Ur Leukocyte Esterase Negative (NEGATIVE) Urine RBC 0-1/hpf (0-5/HPF) Urine WBC 1-5/hpf (0-5/HPF) Ur Squamous Epith Cells 0-1 /hpf (0-5/HPF) Amorphous Sediment 1+ Urine Bacteria None seen (None) Ur Culture Indicated? Specimen cultured COVID-19 PCR Negative (Negative) 12/20/19 12/20/19 Range/Units 08:20 08:35 WBC (4.5-11.0) X10^3/uL RBC (4.0-5.2) X10^6/uL Hgb (12.0-16.0) g/dL Hct (36-46) % MCV (80-100) fL MCH (26-34) PG MCHC (30-36) % RDW (11.6-14.8) % Plt Count (150-400) X10^3/uL Neut % (Auto) (50-75) % Lymph % (Auto) (25-40) % [place]ane % (Auto) (3-14) % Eos % (Auto) (2-4) % Baso % (Auto) (0-2) % Neut # (Auto) (3122-5850) /uL Lymph # (Auto) (2156-9802) /uL [place]ane # (Auto) (0-900) /uL Eos # (Auto) (0-450) /uL Baso # (Auto) (0-100) /uL PT (10.1-12.7) SECONDS INR (0.9-1.3) D-Dimer (<230) ng/mL Sodium (137-145) mmol/L Potassium (3.4-5.1) mmol/L Chloride (98-107) mmol/L Carbon Dioxide (22-32) mmol/L BUN (7-17) mg/dL Creatinine (0.52-1.04) mg/dL Estimated GFR (>60) mL/min BUN/Creatinine Ratio (6-22) Glucose (80-110) mg/dL Lactate 2.1 (0.7-2.1) mmol/L Calcium (8.4-10.2) mg/dL Magnesium (1.6-2.3) mg/dL Total Bilirubin (0.2-1.3) mg/dL AST (14-36) IU/L ALT (<35) IU/L Alkaline Phosphatase (38-126) U/L Total Creatine Kinase (30-135) U/L CK-MB (CK-2) (<2.37) ng/mL CK-MB (CK-2) Rel Index (1.5-5.0) % Troponin I (0.01-0.034) ng/mL NT-Pro-B Natriuret Pep (<125) pg/mL Total Protein (6.3-8.2) g/dL Albumin (3.5-5.0) g/dL Globulin (1.7-4.1) g/dL Albumin/Globulin Ratio (1.0-2.8) Procalcitonin (<0.5) ng/mL TSH (0.47-4.68) uIU/mL Free T4 (0.78-2.19) ng/dL Urine Color Urine Appearance Urine pH (4.5-8.0) Ur Specific [place] (1.000-1.035) Urine Protein (Negative) Urine Glucose (UA) (Negative) g/dL Urine Ketones (NEGATIVE) Urine Occult Blood (Negative) Urine Nitrate (Negative) Urine Bilirubin (NEGATIVE) Urine Urobilinogen (0.2) E.U./dL Ur Leukocyte Esterase (NEGATIVE) Urine RBC (0-5/HPF) Urine WBC (0-5/HPF) Ur Squamous Epith Cells (0-5/HPF) Amorphous Sediment Urine Bacteria (None) Ur Culture Indicated? COVID-19 PCR Negative (Negative) Urine Dip Bedside Urine Glucose 250 mg/dl Bedside Urine Bilirubin - Negative Bedside Urine Ketone + 15 Urine Specific [place] 1.010 Bedside Urine Occult Blood - Negative Bedside Urine pH 6.0 Bedside Urine Protein - Negative Bedside Urine Urobilinogen +/- 1mg Bedside Urine Nitrite - Negative Bedside Urine Leukocytes - Negative Esterase Imaging Data Chest x-ray: Attestation: I personally reviewed and interpreted this imaging study as follows: My Impression: Bilateral pleural effusions, hilar adenopathy, interstitial findings consistent with congestive heart failure CT scan - chest: Radiologist's Impression: No pulmonary embolus Pulmonary edema with pleural effusions Sub segmental atelectasis and multiple subcentimeter inflammatory appearing nodules within the bilateral upper lobes favoring bronchopneumonia Hiatal hernia with distal esophageal circumferential wall thickening with subcentimeter paraesophageal lymph nodes Subcarinal and hilar lymphadenopathy Upper abdominal lymphadenopathy Neoplastic/lymphoma requires exclusion Endoscopy is recommended to assess for esophageal neoplasm Corazon Landa, DO ECG Data Attestation: I personally reviewed and interpreted this ECG as follows: Interpretation: #1 Rapid narrow complex rhythm at 143 Left axis deviation No acute ST T wave changes #2 Rapid narrow complex rhythm at 141 (minimal change post diltiazem) 2-1 atrial flutter No acute changes MDM Narrative Medical decision making narrative: 74-year-old woman initially seen by Dr. Flowers. Care is assumed. Increasing dyspnea and orthopnea. No fevers or cough. Labs have the slightly elevated white blood cell count, chest x-ray with patchy interstitial findings with small pleural effusions. She is in atrial fibrillation and it seems that this is probably been for approximately 3 days with a rapid ventricular rate. She did not slow significantly with diltiazem and amiodarone was given. BNP is elevated consistent with congestive heart failure. Entire clinical picture is consistent with new atrial fibrillation with rapid ventricular response for an extended period of time with moderate co ngestive heart failure in increasing orthopnea. Initial Covid test is negative. She has been given Lasix as well as a nebulizer. Her is currently going back to their hotel to get all of her morning medications which include insulin and blood pressure medications. She is currently in no acute distress definitely denies fevers or myalgias, changed to taste or smell or productive cough. She and her are visiting from [facility] were staying on [facility] and she began noticing the dyspnea yesterday. She is not aware of the rapid heart rates with unclear how long this has been present 820 CT scan is reviewed. No pulmonary embolism. Concern for bilateral pneumonia. Ceftriaxone and Zithromax are added as well as lactate and blood cultures. Confirmatory PCR testing for Covid to confirm the initial negative test as well as full panel PCR lung screening are also repeated. Adenopathy concerning for neoplasm is noted on CT scan with lymphadenopathy. Possible lymphoma and esophageal wall thickening also noted so possibility of esophageal cancer is entertained. Patient remains clinically stable. Will need to be admitted to the hospitalist service 9am reviewed with Dr. Chávez. Will admit the patient. Requests oral potassium supplementation, magnesium 2 g IV and a trial of Lopressor to see if the rate can be decreased at all. Will facilitate its all of these and anticipate transfer to the floor Discharge Plan Departure Patient Disposition: Admitted As Inpatient Clinical Impression: Atrial flutter with rapid ventricular response, Adenopathy, hilar Congestive heart failure Qualifiers: Heart failure type: unspecified Heart failure chronicity: acute Qualified Code(s): I50.9 - Heart failure, unspecified Bilateral pneumonia Qualifiers: Pneumonia type: due to unspecified organism Lung location: unspecified part of lung Qualified Code(s): J18.9 - Pneumonia, unspecified organism Discharge Date/Time: 12/20/19 10:49 Admit Date/Time: 12/20/19 09:07 Admit Provider: Christina Chávez ED Sign-out <Mark Flowers DO - Last Filed: 12/21/19 00:46> Cosign ED Attending Cosignature Attestation: I was immediately available in the department for consultation. This documentation has been reviewed and I agree with assessment and plan. Supervised by Mark Flowers DO
--- NOTE | 2019-12-20 05:17 | DI.RAD.S_ITS ---
PROCEDURE: XR CHEST 1V INDICATIONS: Shortness of breath, fatigue TECHNIQUE: One view of the chest was acquired. COMPARISON: [facility], CT, CT ANGIO CHEST PE PROTOCOL, 12/20/2019, 6:33. FINDINGS: Surgical changes and devices: None. Lungs and pleura: There is cephalization of the pulmonary vasculature and interstitial prominence concerning for CHF/fluid overload.. No pleural effusions or pneumothorax. Mediastinum: Mediastinal contours appear normal. Heart mildly enlarged Bones and chest wall: No suspicious bony lesions. Overlying soft tissues appear unremarkable. IMPRESSION: Mild CHF/fluid overload. Dictated by: Mariza Sanchez MD, PhD on 12/20/2019 at 8:27 Approved by: Mariza Sanchez MD, PhD on 12/20/2019 at 8:29
[2019-12-20] MEDS: dilTIAZem 5 MG/ML SDV 20 MG IV (05:31)
[2019-12-20 05:37] LABS: Add Manual Diff / Slide Review NO; Basophils Absolute Auto 100 /uL (0-100); Basophils Percent Auto 0.8 % (0-2); Eosinophils Absolute Auto 100 /uL (0-450); Eosinophils Percent Auto 0.5 % (2-4); Hematocrit 37.8 % (36-46); Hemoglobin 12.8 g/dL (12.0-16.0); Lymphocytes Absolute Auto 4100 /uL (1100-4500); Lymphocytes Percent Auto 28.5 % (25-40); Mean Corpuscular HGB Conc 33.8 % (30-36); Mean Corpuscular Hemoglobin 31.7 PG (26-34); Mean Corpuscular Volume 93.7 fL (80-100); Monocytes Absolute Auto 1100 /uL (0-900); Monocytes Percent Auto 7.4 % (3-14); Neutrophils Absolute Auto 9100 /uL (1500-7000); Neutrophils Percent Auto 62.8 % (50-75); Platelet Count 160 X10^3/uL (150-400); Red Blood Cell Count 4.04 X10^6/uL (4.0-5.2); Red Cell Distribution Width 13.3 % (11.6-14.8); White Blood Cell Count 14.4 X10^3/uL (4.5-11.0)
[2019-12-20 05:42] LABS: INR 1.1 (0.9-1.3); Prothrombin Time 13.1 SECONDS (10.1-12.7)
[2019-12-20 05:44] LABS: Alanine Aminotransferase 43 IU/L (<35); Albumin 4.1 g/dL (3.5-5.0); Albumin Globulin Ratio 1.6 (1.0-2.8); Alkaline Phosphatase 112 U/L (38-126); Aspartate Aminotransferase 51 IU/L (14-36); BUN Creatinine Ratio 17.8 (6-22); Bilirubin Total 1.9 mg/dL (0.2-1.3); Blood Urea Nitrogen 13 mg/dL (7-17); Calcium 9.1 mg/dL (8.4-10.2); Carbon Dioxide 24 mmol/L (22-32); Chloride 102 mmol/L (98-107); Creatine Kinase 102 U/L (30-135); Estimated Glomerular Filt Rate > 60.0 mL/min (>60); Globulin 2.6 g/dL (1.7-4.1); Glucose 356 mg/dL (80-110); HEMOLYSIS < 15 (0-50); Magnesium 1.5 mg/dL (1.6-2.3); Potassium 3.7 mmol/L (3.4-5.1); Sodium 136 mmol/L (137-145); Total Protein 6.7 g/dL (6.3-8.2)
[2019-12-20 05:45] LABS: D Dimer 671 ng/mL (<230)
[2019-12-20 05:56] LABS: Troponin I 0.025 ng/mL (0.01-0.034)
[2019-12-20 05:59] LABS: CKMB % Relative Index 1.4 % (1.5-5.0)
[2019-12-20] MEDS: AMIODARONE 150 MG/100 ML PIGGYBACK 600 MG IV (06:09)
[2019-12-20 06:21] LABS: NT-proBNP (BNP-Adult 18+) 1570 pg/mL (<125)
[2019-12-20] MEDS: AMIODARONE 360 MG/200 ML PIGGYBACK 33.33 MG IV (06:28)
[2019-12-20 06:32] LABS: COVID19 -Nasal RAPID Negative (Negative)
--- NOTE | 2019-12-20 06:57 | DI.CT.S_ITS ---
PROCEDURE: CT ANGIO CHEST PE PROTOCOL INDICATIONS: tachycardia, elevated DDimer, tachpnea TECHNIQUE: After the administration of intravenous contrast, 2 mm thick sections acquired from the pulmonary apices to the posterior costophrenic angles. 3-dimensional maximum intensity projection (MIP) coronal and sagittal reformats were then acquired through the thorax. For radiation dose reduction, the following was used: automated exposure control, adjustment of mA and/or kV according to patient size. COMPARISON: [facility], CR, XR CHEST 1V, 12/20/2019, 5:20. FINDINGS: Image quality: Excellent. Pulmonary arteries: Pulmonary arteries are normal in size, and demonstrate no intraluminal filling defects to suggest central pulmonary embolism. Lungs and pleura: Multiple areas of patchy and nodular opacities are present within the lungs predominantly on the right. Mild bibasilar pleural effusions are present, right greater than left. There is an overall appearance of increased pulmonary vascularity. Mediastinum: Heart size is mildly enlarged, without pericardial effusion. Multiple mediastinal and hilar lymph nodes are present. Many are enlarged including a 26 mm right hilar lymph node. Thoracic aorta is normal in caliber and enhancement. Esophagus demonstrates diffuse distal thickening, with hiatal hernia. Bones and chest wall: No suspicious bony lesions. Ribs and thoracic spine appear intact throughout. Thyroid gland is unremarkable . No axillary or supraclavicular adenopathy. Abdomen: Enlarged lymph nodes are noted within the partially visualized superior mediastinum particularly within the epigastric, itzel hepatis as well as peripancreatic regions. Otherwise, visualized upper abdominal solid organs appear normal in the early arterial phase of enhancement. IMPRESSION: 1. No pulmonary embolism. 2. Mild effusions with increased vascularity suggestive of pulmonary edema. 3. Multiple areas of patchy and nodular opacity particularly on the right as above. Overall appearance is suspicious for infection or inflammation such as pneumonia. Recommend interval follow up after appropriate therapy to document resolution. 4. Hiatal hernia with distal esophageal thickening. Distal esophagus is circumferentially thicker than typically expected even with hiatal hernia. Upper GI or endoscopy is recommended for further evaluation. 5. Mediastinal, hilar and upper abdominal adenopathy are identified. While this could be reactive in nature, neoplastic etiologies cannot be excluded. The above findings are concordant with preliminary report. Dictated by: Helen Cisneros M.D. on 12/20/2019 at 8:02 Approved by: Helen Cisneros M.D. on 12/20/2019 at 8:07
[2019-12-20] MEDS: FUROSEMIDE 40 MG/4 ML VIAL IV ×2 (06:58→18:03)
[2019-12-20] MEDS: ALBUTEROL/IPRATROPIUM 3 ML AMPUL INH (06:58)
--- NOTE | 2019-12-20 07:36 | PC.NURSE ---
Amidodarone gtt infusing.
[2019-12-20 08:24] LABS: Appearance Urine UA CLEAR; Bacteria Urine None Seen; Bilirubin Urine UA NEGATIVE (NEGATIVE); Color Urine UA YELLOW; Glucose Urine UA 2+ g/dL (Negative); Ketones Urine UA 1+ (NEGATIVE); Leukocyte Esterase Urine UA NEGATIVE (NEGATIVE); Nitrite Urine UA NEGATIVE (Negative); Occult Blood Urine UA TRACE-LYSED (Negative); Protein Urine UA NEGATIVE (Negative); Urobilinogen Urine UA 0.2 E.U./dL (0.2)
[2019-12-20 08:31] LABS: Amorphous Sediment Urine 1+; Culture Indicated Urine Specimen Cultured; RBC Urine 0-1/HPF (0-5/HPF); Squamous Epithelial Cell Urine 0-1 /HPF (0-5/HPF); WBC Urine 1-5/HPF (0-5/HPF)
[2019-12-20] MEDS: AZITHROMYCIN 500 MG in DEXTROSE 5% IN WATER 250 ML IV ×2 (08:43→12:00)
[2019-12-20] MEDS: ENOXAPARIN 150 MG/ML SYRINGE 125 MG SUBCUT (08:44)
[2019-12-20 08:46] LABS: Lactate (Lactic Acid) 2.1 mmol/L (0.7-2.1)
--- NOTE | 2019-12-20 09:04 | PC.NURSE ---
Pt took 45 units of her insulin,Dr Syed aware and instructed pt to take 45 units rather than her normal 66 units
[2019-12-20] MEDS: METOPROLOL TARTRATE 5 MG/5 ML INJ IV ×3 (09:11→09:35)
[2019-12-20] MEDS: POTASSIUM CHLORIDE 20 MEQ TAB 40 MEQ PO (09:11)
[2019-12-20] MEDS: CEFTRIAXONE 2 GM/50 ML FROZ.PIGGY IV (09:13)
[2019-12-20 09:16] LABS: Procalcitonin 0.29 ng/mL (<0.5)
--- NOTE | 2019-12-20 09:24 | PC.NURSE ---
post metoprolol push given
--- NOTE | 2019-12-20 09:33 | PC.NURSE ---
following 2nd dose metoprolol.
[2019-12-20 09:36] LABS: COVID19 -Nasal RAPID Negative (Negative)
--- NOTE | 2019-12-20 09:42 | PC.NURSE ---
following 3rd dose metoprolol
--- NOTE | 2019-12-20 09:42 | PC.NURSE ---
pt is tachypnic rate 27,appears SOB without exertion.
[2019-12-20] MEDS: MAGNESIUM SULFATE 2 GM/50 ML PIGGYBACK IV (10:27)
[2019-12-20 10:35] LABS: Reflexed Lactate in 2 Hours Y
[2019-12-20 11:43] LABS: Lactate 2HR (Lactic Acid Rflx) 1.9 mmol/L (0.7-2.1)
--- NOTE | 2019-12-20 11:52 | PC.NURSE ---
Admission Arrived from ER, able to pivot to Bed, SOB with any exertion. HR 120's, Tele placed. Pt is on RA, Spo2 95% at present, unable to speak sentences Home med list will be coming via email per spouse, who is at bedside. Pt is A/o x4, RINCON.
--- NOTE | 2019-12-20 12:02 | DI.ECHO.S_ITS ---
[facility] +---------+ : : [address] : [address] : : : : [id number] : : : : Phone: [phone] Echocardiogram Report + + :Name: RONEL CHACON Study Date: 12/21/2019 Height: 65 in : :[facility] Weight: 280 lb : : Gender: Female BSA: 2.3 m2 : :: 1945 Age: 74 yrs BP: 138/77 mmHg: :Reason For Study: AFIB WITH RVR : :Ordering Physician: JUNI, : :BEAU Performed By: Colette Enriquez : :Referring: BEAU ALFREDO : + + Interpretation Summary 1) Normal left ventricular thickness, size, wall motion, and systolic function (EF 55-60%). 2) The right ventricle is mildly dilated. Right ventricular systolic function is at the lower limits of normal. 3) The left atrium is moderately dilated. 4) No significant valvular abnormalities. 5) No prior Echo available for comparison. Procedure: A two-dimensional transthoracic echocardiogram with color flow and Doppler was performed. The study quality was technically adequate. There is no prior echocardiogram noted for this patient. Left Ventricle: The left ventricle is normal in size and wall thickness. The ejection fraction is estimated to be 55-60%. Left ventricular systolic function is normal without focal wall motion abnormalities. Diastolic function could not be accurately assessed due to atrial fibrillation. Right Ventricle: The right ventricle is mildly dilated. Right ventricular systolic function is at the lower limits of normal. Atria: The left atrium is moderately dilated. Right atrial size is normal. There is no Doppler evidence for an interatrial shunt. Mitral Valve: There is mild mitral annular calcification. There is mild mitral regurgitation. Aortic Valve: The aortic valve is grossly normal. The aortic valve is trileaflet. The aortic valve opens well. There is no aortic valve stenosis. There is trace aortic regurgitation. Tricuspid Valve: The tricuspid valve is not well visualized, but is grossly normal. Pulmonary artery pressures cannot be estimated because of the lack of a measurable TR jet velocity but the IVC suggests a CVP of around 8 mmHg. There is trace tricuspid regurgitation. Pulmonic Valve: The pulmonic valve is not well seen, but is grossly normal. There is trace pulmonic regurgitation. Great Vessels: The aortic root is normal size. The ascending aorta could not be visualized. The IVC is dilated (diameter is greater than 2.1 cm) yet it collapses greater than 50% with a sniff. This suggests a right atrial pressure of 8 mm Hg. Pericardium/ Pleura There is no pericardial effusion. There is no pleural effusion. MMode/2D Measurements & Calculations LVIDd: 4.2 cm LVOT diam: 2.0 cm LVIDs: 3.2 cm Ao root diam: 3.1 cm FS: 24.4 % Ao Arch Diam (Prox Trans): 2.7 cm EPSS: 0.89 cm IVSd: 0.85 cm LVPWd: 0.91 cm LV silva. diameter/BSA (cm/m^2): 1.8 LV sys. diameter/BSA (cm/m^2): 1.4 LA A2 area: 23.2 cm2 RA long axis: 5.2 cm LA A4 area: 25.8 cm2 RA area: 21.0 cm2 LA length (vol): 6.3 cm RA vol: 72.7 ml LA vol: 80.5 ml RA : 31.8 ml/m2 LA vol index: 35.3 ml/m2 IVC diam: 2.4 cm RVD1 (basal): 4.2 cm TAPSE: 1.7 cm Doppler Measurements & Calculations Ao V2 max: 108.3 cm/sec LVOT Max Truman: 82.5 cm/sec Ao V2 mean: 73.6 cm/sec LV V1 max P.7 mmHg Ao max P.7 mmHg LV V1 VTI: 13.5 cm Ao mean P.5 mmHg CECE(I,D): 2.4 cm2 Ao V2 VTI: 17.8 cm CECE(V,D): 2.5 cm2 sev ratio: 0.76 CECE indexed to BSA (cm^2/m^2): 1.1 MV E max truman: 138.9 cm/sec PA V2 max: 50.8 cm/sec MV A max truman: 1.8 cm/sec PA V2 mean: 35.3 cm/sec MV E/A: 75.8 PA mean P.56 mmHg Med Peak E' Truman: 5.1 cm/sec PA pr(Accel): 35.3 mmHg E/E' med: 27.4 Lat Peak E' Truman: 8.6 cm/sec E/E' lat: 16.2 E/e' average: 21.8 MV dec time: 0.19 sec SV(LVOT): 43.5 ml Reading Physician:01:57 PM
[2019-12-20] MEDS: AMIODARONE 541 MG/300.56 ML PIGGYBACK 16.7 MG IV ×2 (12:57→23:56)
[2019-12-20] MEDS: LEVALBUTEROL 1.25 MG/0.5 ML NEB INH (14:12)
[2019-12-20 14:40] LABS: Creatine Kinase 91 U/L (30-135)
[2019-12-20] MEDS: INSULIN REGULAR 100 UNIT/ML 3 ML VIAL 10 UNIT IV (14:50)
[2019-12-20 14:53] LABS: Troponin I 0.015 ng/mL (0.01-0.034)
[2019-12-20] MEDS: METOPROLOL IR 50 MG TABLET PO ×2 (17:19→23:55)
[2019-12-20] MEDS: INSULIN ASPART 100 UNIT/ML INSULN PEN SUBCUT ×2 (17:19→21:08)
--- NOTE | 2019-12-20 17:27 | P.HP_ITS ---
History of Present Illness History of Present Illness Date Patient Seen: 12/20/19 Chief complaint: difficulty breathing Narrative: Brenda Schreiber 74-year-old female who is a poor historian with a past medical history significant for hypertension, hyperlipidemia, diabetes mellitus type 2, insulin using, with polyneuropathy, NORM on CPAP, GERD, asthma, and overactive bladder who presented to the ED complaining of 1-2 days of progressive worsening shortness of breath. The patient is from [place], [place] and was visiting [facility] when she began having shortness of breath. She reports congestion in her chest, wheezing, shortness of breath at rest, dyspnea on exertion and o rthopnea. She does endorse dry nonproductive cough. She denies headache, sore throat, rhinitis, chest pain, fever, chills, back pain, extremity pain, dysuria, diarrhea or constipation. She endorses feeling clammy/diaphoretic and has a cool towel on forehead. She denies sick contacts or exposure to COVID-19. She has no history of atrial fibrillation or congestive heart failure. She has mild conversational dyspnea and audible wheezing during interview. The patient reports she does not feel that bad but appears clearly ill. ED course: Patient was found to be in atrial fibrillation with RVR in the 140s. Received diltiazem 20 mg IV x1 without improvement in heart rate. Chest x-ray performed demonstrated mild pulmonary vascular congestion and edema with probable CHF. Received Lasix 40 mg IV x1. Received amiodarone bolus and started on amiodarone gtt and was in 2:1 atrial flutter with little change in rapid ventricular rate. CTA chest was performed in ruled out pulmonary embolism and demonstrated bilateral pneumonia. Performed blood cultures, lactic acid, and received ceftriaxone 2 g IV x1 and azithromycin 500 mg IV x1. Patient was admitted as an inpatient for atrial fibrillation with RVR, CHF, pneumonia and asthma exacerbation. PCP is Dr. Garcia in [place], [place] Patient History Medical History (Updated 12/20/19 @ 23:45 by Christina Chávez DO) Asthma (Acute) B12 deficiency (Acute) Carpal tunnel syndrome (Acute) Diabetes mellitus type 2 in obese (Acute) Diabetic polyneuropathy (Acute) GERD (gastroesophageal reflux disease) (Acute) Humeral fracture (Acute) Hyperlipidemia (Acute) Hypertension (Acute) Morbid obesity (Acute) NORM on CPAP (Acute) Osteoarthritis (Acute) Overactive bladder (Acute) Venous insufficiency (Acute) Surgical History (Updated 12/20/19 @ 23:45 by Christina Chávez DO) History of tonsillectomy (Acute) Family & Social History Family History (Updated 12/21/19 @ 08:11 by Christina Chávez DO) Mother Heart disease Father Heart disease Social History: household members spouse Prior Living Arrangements House Safety & Behavioral: Feels Safe in Current Yes Environment Been Physically Hurt or No Threatened By a Person Suicidal Ideation Description None Suicide Plan Description No Plan Tobacco & Substance use: Smoking Status Former smoker, 1/2 ppd x 20 years alcohol intake frequency occasional 1-2 drinks a month Substance Use Type does not use The patient has been to her current spouse for 7 years. The patient was previously for 36 years and now . She has 2 sons and 1 daughter who are all healthy. 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 Meds Home Medications and Allergies Home Medications Medication Instructions Recorded Confirmed Type albuterol sulfate 1 - 4 puff INHALATION Q4HR PRN 12/20/19 12/20/19 History amlodipine 5 mg PO DAILY 12/20/19 12/20/19 History aspirin 81 mg PO DAILY 12/20/19 12/20/19 History hydrochlorothiazide 25 mg PO DAILY 12/20/19 12/20/19 History insulin NPH isoph U-100 human See Rx Instructions .ROUTE .COMPLEX 12/20/19 12/20/19 History [Humulin N NPH U-100 Insulin] losartan 50 mg PO BID 12/20/19 12/20/19 History metformin 1,000 mg PO BID 12/20/19 12/20/19 History omeprazole 20 mg PO DAILY 12/20/19 12/20/19 History simvastatin 20 mg PO QPM 12/20/19 12/20/19 History triamcinolone acetonide 1 applic TOPICAL BID 12/20/19 12/20/19 History trospium 20 mg PO BID 12/20/19 12/20/19 History Allergies Allergy/AdvReac Type Severity Reaction Status Date / Time clindamycin Allergy Hives Verified 12/20/19 15:41 Penicillins Allergy Hives Verified 12/20/19 15:41 Sulfa (Sulfonamide Allergy Hives Verified 12/20/19 15:41 Antibiotics) lisinopril AdvReac Verified 12/20/19 15:41 Review of Systems Review of Systems Narrative: A 10 system comprehensive review of systems was conducted with the patient and found to be negative except as above in the History of Present Illness. Exam Vital Signs (past 8 hours): - 12/20/19 09:30 12/20/19 09:31 12/20/19 09:35 Temperature Pulse Rate 131 H 129 H 129 H Respiratory Rate 28 H 27 H 25 H Blood Pressure 106/75 106/75 109/71 Pulse Oximetry 92 91 90 L 12/20/19 09:40 12/20/19 09:45 12/20/19 10:00 Temperature Pulse Rate 125 H 129 H 124 H Respiratory Rate 28 H 31 H 25 H Blood Pressure 113/78 115/75 115/74 Pulse Oximetry 91 92 89 L 12/20/19 10:30 12/20/19 10:31 12/20/19 10:33 Temperature Pulse Rate 127 H 129 H 128 H Respiratory Rate 31 H 34 H 30 H Blood Pressure 105/78 Pulse Oximetry 93 92 92 12/20/19 10:34 12/20/19 10:45 12/20/19 11:03 Temperature Pulse Rate 125 H 129 H 129 H Respiratory Rate 28 H 29 H Blood Pressure 105/78 111/83 Pulse Oximetry 92 94 12/20/19 11:09 12/20/19 11:10 12/20/19 11:30 Temperature 97.2 F L Pulse Rate 130 H 127 H 128 H Respiratory Rate 15 30 H 25 H Blood Pressure 127/73 127/73 116/84 Pulse Oximetry 93 99 94 12/20/19 11:31 12/20/19 12:00 12/20/19 12:25 Temperature Pulse Rate 127 H 127 H Respiratory Rate 26 H 22 Blood Pressure 116/84 130/77 Pulse Oximetry 94 91 94 12/20/19 12:30 12/20/19 12:43 12/20/19 12:49 Temperature Pulse Rate 127 H 128 H Respiratory Rate 25 H 28 H Blood Pressure 125/87 Pulse Oximetry 93 94 93 12/20/19 13:00 12/20/19 13:20 12/20/19 13:21 Temperature Pulse Rate 128 H 129 H 127 H Respiratory Rate 27 H 33 H 27 H Blood Pressure 114/85 114/85 Pulse Oximetry 93 94 93 12/20/19 13:30 12/20/19 13:38 12/20/19 14:00 Temperature Pulse Rate 128 H 128 H 127 H Respiratory Rate 26 H 29 H 22 Blood Pressure 147/80 H Pulse Oximetry 92 93 91 12/20/19 14:17 12/20/19 14:20 12/20/19 14:24 Temperature Pulse Rate 126 H 125 H 127 H Respiratory Rate 26 H 23 27 H Blood Pressure 128/70 128/70 Pulse Oximetry 94 92 96 12/20/19 14:30 12/20/19 15:00 12/20/19 15:17 Temperature Pulse Rate 129 H 127 H 129 H Respiratory Rate 24 21 27 H Blood Pressure 121/89 Pulse Oximetry 92 93 94 12/20/19 15:24 12/20/19 15:30 12/20/19 16:00 Temperature Pulse Rate 128 H 130 H 129 H Respiratory Rate 23 30 H 23 Blood Pressure 121/89 Pulse Oximetry 96 91 12/20/19 16:06 Temperature Pulse Rate 129 H Respiratory Rate 26 H Blood Pressure 127/78 Pulse Oximetry 93 Oxygen Delivery Method Room Air Oxygen Flow Rate 0 Narrative Exam Narrative: General: Older female lying in bed and in no acute distress, appears acutely ill, well-developed, well-nourished, appropriately interactive. HEENT: Normocephalic, atraumatic. External ears without defect. Pupils equal, round, and reactive to light. Anicteric sclerae, moist conjunctivae, and no lid lag. Oropharynx free of erythema and cobble stoning with moist mucosa. Neck: Supple with full range of motion. No jugular venous distension. No lymphadenopathy or thyromegaly. Cardiovascular: Irregularly irregular, tachycardic, without murmurs, rubs, or gallops appreciated. Pulmonary: Diminished throughout with end-expiratory wheezes in all lung watkins. No obvious rhonchi or crackles. Tachypneic with mild use of accessory muscles. Abdomen: Soft, obese, bowel sounds present, nontender, nondistended. Extremities: No clubbing, cyanosis, or edema. Skin: Normal temperature, turgor, and texture; no rash, ulcers, or subcutaneous nodules appreciated. Neurological: Cranial nerves grossly intact. Psychiatric: Normal mood and affect. Alert and oriented to person, place, and time. Mild cognitive impairment with short-term memory recall deficit. Objective Labs Result Diagrams: 10/03/20 04:48 12/21/19 04:48 Labs: Laboratory Results - last 24 hr 12/20/19 12/20/19 12/20/19 05:26 05:26 05:26 WBC 14.4 H RBC 4.04 Hgb 12.8 Hct 37.8 MCV 93.7 MCH 31.7 MCHC 33.8 RDW 13.3 Plt Count 160 Neut % (Auto) 62.8 Lymph % (Auto) 28.5 [place] % (Auto) 7.4 Eos % (Auto) 0.5 L Baso % (Auto) 0.8 Neut # (Auto) 9100 H Lymph # (Auto) 4100 [place] # (Auto) 1100 H Eos # (Auto) 100 Baso # (Auto) 100 PT 13.1 H INR 1.1 D-Dimer 671 H Sodium 136 L Potassium 3.7 Chloride 102 Carbon Dioxide 24 BUN 13 Creatinine 0.73 Estimated GFR > 60.0 BUN/Creatinine Ratio 17.8 Glucose 356 H Lactate Calcium 9.1 Magnesium 1.5 L Total Bilirubin 1.9 H AST 51 H ALT 43 H Alkaline Phosphatase 112 Total Creatine Kinase 102 CK-MB (CK-2) 1.40 CK-MB (CK-2) Rel Index 1.4 L Troponin I 0.025 NT-Pro-B Natriuret Pep Total Protein 6.7 Albumin 4.1 Globulin 2.6 Albumin/Globulin Ratio 1.6 Procalcitonin TSH Free T4 Urine Color Urine Appearance Urine pH Ur Specific [place] Urine Protein Urine Glucose (UA) Urine Ketones Urine Occult Blood Urine Nitrate Urine Bilirubin Urine Urobilinogen Ur Leukocyte Esterase Urine RBC Urine WBC Ur Squamous Epith Cells Amorphous Sediment Urine Bacteria Ur Culture Indicated? Nasal Screen MRSA (PCR) COVID-19 PCR 12/20/19 12/20/19 12/20/19 05:26 05:26 05:26 WBC RBC Hgb Hct MCV MCH MCHC RDW Plt Count Neut % (Auto) Lymph % (Auto) [place] % (Auto) Eos % (Auto) Baso % (Auto) Neut # (Auto) Lymph # (Auto) [place] # (Auto) Eos # (Auto) Baso # (Auto) PT INR D-Dimer Sodium Potassium Chloride Carbon Dioxide BUN Creatinine Estimated GFR BUN/Creatinine Ratio Glucose Lactate Calcium Magnesium Total Bilirubin AST ALT Alkaline Phosphatase Total Creatine Kinase CK-MB (CK-2) CK-MB (CK-2) Rel Index Troponin I NT-Pro-B Natriuret Pep 1570 H Total Protein Albumin Globulin Albumin/Globulin Ratio Procalcitonin 0.29 TSH 5.40 H Free T4 Urine Color Urine Appearance Urine pH Ur Specific [place] Urine Protein Urine Glucose (UA) Urine Ketones Urine Occult Blood Urine Nitrate Urine Bilirubin Urine Urobilinogen Ur Leukocyte Esterase Urine RBC Urine WBC Ur Squamous Epith Cells Amorphous Sediment Urine Bacteria Ur Culture Indicated? Nasal Screen MRSA (PCR) COVID-19 PCR 12/20/19 12/20/19 12/20/19 05:26 06:10 08:15 WBC RBC Hgb Hct MCV MCH MCHC RDW Plt Count Neut % (Auto) Lymph % (Auto) [place] % (Auto) Eos % (Auto) Baso % (Auto) Neut # (Auto) Lymph # (Auto) [place] # (Auto) Eos # (Auto) Baso # (Auto) PT INR D-Dimer Sodium Potassium Chloride Carbon Dioxide BUN Creatinine Estimated GFR BUN/Creatinine Ratio Glucose Lactate Calcium Magnesium Total Bilirubin AST ALT Alkaline Phosphatase Total Creatine Kinase CK-MB (CK-2) CK-MB (CK-2) Rel Index Troponin I NT-Pro-B Natriuret Pep Total Protein Albumin Globulin Albumin/Globulin Ratio Procalcitonin TSH Free T4 1.20 Urine Color Yellow Urine Appearance Clear Urine pH 6.0 Ur Specific [place] 1.010 Urine Protein Negative Urine Glucose (UA) 2+ H Urine Ketones 1+ H Urine Occult Blood Trace-lysed Urine Nitrate Negative Urine Bilirubin Negative Urine Urobilinogen 0.2 Ur Leukocyte Esterase Negative Urine RBC 0-1/hpf Urine WBC 1-5/hpf Ur Squamous Epith Cells 0-1 /hpf Amorphous Sediment 1+ Urine Bacteria None seen Ur Culture Indicated? Specimen cultured Nasal Screen MRSA (PCR) COVID-19 PCR Negative 12/20/19 12/20/19 12/20/19 08:20 08:35 11:20 WBC RBC Hgb Hct MCV MCH MCHC RDW Plt Count Neut % (Auto) Lymph % (Auto) [place] % (Auto) Eos % (Auto) Baso % (Auto) Neut # (Auto) Lymph # (Auto) [place] # (Auto) Eos # (Auto) Baso # (Auto) PT INR D-Dimer Sodium Potassium Chloride Carbon Dioxide BUN Creatinine Estimated GFR BUN/Creatinine Ratio Glucose Lactate 2.1 1.9 Calcium Magnesium Total Bilirubin AST ALT Alkaline Phosphatase Total Creatine Kinase CK-MB (CK-2) CK-MB (CK-2) Rel Index Troponin I NT-Pro-B Natriuret Pep Total Protein Albumin Globulin Albumin/Globulin Ratio Procalcitonin TSH Free T4 Urine Color Urine Appearance Urine pH Ur Specific [place] Urine Protein Urine Glucose (UA) Urine Ketones Urine Occult Blood Urine Nitrate Urine Bilirubin Urine Urobilinogen Ur Leukocyte Esterase Urine RBC Urine WBC Ur Squamous Epith Cells Amorphous Sediment Urine Bacteria Ur Culture Indicated? Nasal Screen MRSA (PCR) COVID-19 PCR Negative 12/20/19 12/20/19 13:05 14:24 WBC RBC Hgb Hct MCV MCH MCHC RDW Plt Count Neut % (Auto) Lymph % (Auto) [place] % (Auto) Eos % (Auto) Baso % (Auto) Neut # (Auto) Lymph # (Auto) [place] # (Auto) Eos # (Auto) Baso # (Auto) PT INR D-Dimer Sodium Potassium Chloride Carbon Dioxide BUN Creatinine Estimated GFR BUN/Creatinine Ratio Glucose Lactate Calcium Magnesium Total Bilirubin AST ALT Alkaline Phosphatase Total Creatine Kinase 91 CK-MB (CK-2) TNP CK-MB (CK-2) Rel Index TNP Troponin I 0.015 NT-Pro-B Natriuret Pep Total Protein Albumin Globulin Albumin/Globulin Ratio Procalcitonin TSH Free T4 Urine Color Urine Appearance Urine pH Ur Specific [place] Urine Protein Urine Glucose (UA) Urine Ketones Urine Occult Blood Urine Nitrate Urine Bilirubin Urine Urobilinogen Ur Leukocyte Esterase Urine RBC Urine WBC Ur Squamous Epith Cells Amorphous Sediment Urine Bacteria Ur Culture Indicated? Nasal Screen MRSA (PCR) Negative for mrsa COVID-19 PCR Assessment & Plan Assessment & Plan narrative: Brenda Schreiber 74-year-old female who is a poor historian with a past medical history significant for hypertension, hyperlipidemia, diabetes mellitus type 2, insulin using, with polyneuropathy, NORM on CPAP, GERD, asthma, and overactive bladder who presented to the ED complaining of 1-2 days of progressive worsening shortness of breath. 1. Acute atrial fibrillation with RVR, present on admission. Active. -Patient presented to the ED with significant dyspnea and was found to be in atrial fibrillation with RVR with heart rate in the 140s. -Received diltiazem 20 mg IV x1 in ED without significant improvement in heart rate. The patient was then received amiodarone bolus over 10 minutes and started on amiodarone gtt without significant improvement in heart rate. She was then given metoprolol 5 mg IV x3 doses without any improvement in heart rate. Continue to treat underlying etiology of pneumonia as below. -EKG demonstrated atrial fibrillation with RVR without acute ischemic changes such as ST elevation or depression. Troponin within normal limits at 0.024 and trended down to 0.015. Continue to monitor closely on telemetry. -TSH slightly at 5.40 but free T4 normal at 1.20. -CTA chest did not demonstrate pulmonary embolism. -Continue to monitor electrolytes and replete as necessary. Goal K 4.0 and Mg 2.0. -Continue amiodarone gtt for 24 hours. Started metoprolol tartrate 50 mg every 6 hours in treat underlying infection as below per cardiology. Continue to monitor patient's hemodynamics closely and if patient becomes unstable with significant tachycardia and hypotension will need cardioverted. 2. Acute cardiogenic induced pulmonary edema with possible new onset congestive heart failure, present on admission. Active. -Chest x-ray demonstrated mild CHF/fluid overload. -CTA chest demonstrated mild effusions with increased vascularity consistent with pulmonary edema. -Continue to monitor strict I&Os and daily weights. -Received furosemide 40 mg IV x1 in ED. Continue furosemide 40 mg IV daily. -Ordered echocardiogram, pending. 3. Acute right-sided bacterial pneumonia, present on admission. Active. -CTA chest demonstrated multiple areas of patchy and nodular opacity particularly on the right suspicious for pneumonia and mediastinal, hilar and upper abdominal adenopathy likely reactive but neoplasm not ruled out and recommend repeat CT in 4-6 weeks after resolution of pneumonia. -Initial WBC 14.4 and procalcitonin 0.29. Continue to monitor WBC and procalcitonin daily. -Ordered complete pneumonia workup including: Respiratory viral PCR negative. COVID-19 negative x2. Sputum culture not yet obtained. Blood cultures x2, pending. -Continue ceftriaxone 2 g IV daily and azithromycin 500 mg x 3 doses total. 4. Asthma with acute exacerbation, present on admission. Active. -Patient has conversational dyspnea, shortness of breath and wheezing at rest. -Consulted respiratory therapy for evaluation and treatment. Continue Xopenex nebulizer treatment every 4 hours as needed for shortness of breath or wheezing. Started methylprednisolone 60 mg IV daily and will slowly titrate down as patient's dyspnea and wheezing improve. 5. Diabetes mellitus type 2, insulin using, chronic, present on admission. Stable. -Hemoglobin A1c 12.6% indicative of significantly poor glycemic control. -Held home metformin. -Continue ACHS blood glucose checks and high-dose correctional scale insulin. -Held home NPH and started Lantus 45 units twice daily. 6. Obstructive sleep apnea on CPAP, chronic, present on admission. Stable. -Odered CPAP her RT protocol if spouse is unable to bring in home CPAP. 7. GERD, chronic, present on admission. Stable. -CTA chest demonstrated hiatal hernia with distal esophageal thickening circumferentially thicker than typically expected with hiatal hernia and recommend upper endoscopy which can be performed as an outpatient. -Continue equivalent of home omeprazole with Protonix 20 mg daily. 8. Hypertension, chronic, present on admission. Stable. -Continue home amlodipine 5 mg daily and losartan 50 mg twice daily. Held hydrochlorothiazide while diuresing with IV furosemide as above. 9. Hyperlipidemia, chronic, present on admission. Stable. -Continue home aspirin 81 mg daily and simvastatin 20 mg daily at bedtime. 10. Overactive bladder, chronic, present on admission. Stable. -Continue equivalent of home trospium 20 mg twice daily with oxybutynin ER 5 mg daily. 11. Morbid obesity, chronic, present on admission. Stable. -BMI 39.6. -Consulted dietitian and we appreciate her time and recommendations. Code status: Full code, surrogate decision maker is designated as patient's spouse VTE prophylaxis: Therapeutic Lovenox, SCDs Patient is admitted under inpatient status with expected length of stay greater than 2 midnights due to severity of presenting symptoms, risk of adverse event, and complexity of treatment plan.
[2019-12-20] MEDS: methylPREDNISolone 125 MG/2 ML VIAL 60 MG IV (18:03)
[2019-12-20 18:30] LABS: Alanine Aminotransferase 36 IU/L (<35); Albumin 3.8 g/dL (3.5-5.0); Albumin Globulin Ratio 1.4 (1.0-2.8); Alkaline Phosphatase 85 U/L (38-126); Aspartate Aminotransferase 35 IU/L (14-36); Bilirubin Total 1.2 mg/dL (0.2-1.3); Blood Urea Nitrogen 15 mg/dL (7-17); Calcium 8.9 mg/dL (8.4-10.2); Carbon Dioxide 30 mmol/L (22-32); Chloride 99 mmol/L (98-107); Estimated Glomerular Filt Rate > 60.0 mL/min (>60); Globulin 2.7 g/dL (1.7-4.1); Glucose 295 mg/dL (80-110); HEMOLYSIS < 15 (0-50); Potassium 4.1 mmol/L (3.4-5.1); Sodium 136 mmol/L (137-145); Total Protein 6.5 g/dL (6.3-8.2)
[2019-12-20 18:31] LABS: Magnesium 1.9 mg/dL (1.6-2.3)
[2019-12-20 19:12] LABS: Adenovirus Not Detected (Not Detect); Bordetella pertussis Not Detected (Not Detect); Chlamydophila pneumoniae Not Detected (Not Detect); Coronavirus 229E Not Detected (Not Detect); Coronavirus HKU1 Not Detected (Not Detect); Coronavirus NL 63 Not Detected (Not Detect); Coronavirus OC43 Not Detected (Not Detect); Human Metapneumovirus Not Detected (Not Detect); Human Rhinovirus/Enterovirus Not Detected (Not Detect); Influenza A Not Detected (Not Detect); Influenza B Not Detected (Not Detect); Mycoplasma pneumoniae Not Detected (Not Detect); Parainfluenza Virus 1 Not Detected (Not Detect); Parainfluenza Virus 2 Not Detected (Not Detect); Parainfluenza Virus 3 Not Detected (Not Detect); Parainfluenza Virus 4 Not Detected (Not Detect); Respiratory Syncytial Virus Not Detected (Not Detect)
[2019-12-20 19:36] LABS: Hemoglobin A1C% w Est Avg Glu 12.5 % (4.0-6.0)
[2019-12-20] MEDS: guaiFENesin ER 600 MG TAB 1200 MG PO (21:06)
[2019-12-20] MEDS: MAGNESIUM CHLORIDE 64 MG TABLET PO (21:07)
[2019-12-20] MEDS: LOSARTAN 50 MG TABLET PO (21:07)
[2019-12-20] MEDS: INSULIN GLARGINE 100 UNIT/ML 3ML PEN 45 UNIT SUBCUT (21:09)
[2019-12-20] MEDS: ENOXAPARIN 150 MG/ML SYRINGE 110 MG SUBCUT (21:11)
[2019-12-21] VITALS (11 sets, daily range): BP systolic 113–172; BP diastolic 71–107; PULSE 106–125; RESP 16–26; TEMP 35.6–36.6; O2SAT 92–97
[2019-12-21 05:14] LABS: Add Manual Diff / Slide Review NO; Basophils Absolute Auto 100 /uL (0-100); Basophils Percent Auto 0.7 % (0-2); Eosinophils Absolute Auto 0 /uL (0-450); Eosinophils Percent Auto 0.1 % (2-4); Hematocrit 38.1 % (36-46); Hemoglobin 12.9 g/dL (12.0-16.0); Lymphocytes Absolute Auto 3300 /uL (1100-4500); Lymphocytes Percent Auto 26.6 % (25-40); Mean Corpuscular HGB Conc 33.8 % (30-36); Mean Corpuscular Hemoglobin 31.9 PG (26-34); Mean Corpuscular Volume 94.4 fL (80-100); Monocytes Absolute Auto 400 /uL (0-900); Monocytes Percent Auto 3.2 % (3-14); Neutrophils Absolute Auto 8500 /uL (1500-7000); Neutrophils Percent Auto 69.4 % (50-75); Platelet Count 141 X10^3/uL (150-400); Red Blood Cell Count 4.04 X10^6/uL (4.0-5.2); Red Cell Distribution Width 13.1 % (11.6-14.8); White Blood Cell Count 12.2 X10^3/uL (4.5-11.0)
[2019-12-21 05:27] LABS: Alanine Aminotransferase 36 IU/L (<35); Albumin Globulin Ratio 1.4 (1.0-2.8); Alkaline Phosphatase 89 U/L (38-126); Aspartate Aminotransferase 32 IU/L (14-36); Bilirubin Total 1.4 mg/dL (0.2-1.3); Blood Urea Nitrogen 21 mg/dL (7-17); Carbon Dioxide 28 mmol/L (22-32); Chloride 100 mmol/L (98-107); Estimated Glomerular Filt Rate > 60.0 mL/min (>60); Globulin 2.8 g/dL (1.7-4.1); Glucose 380 mg/dL (80-110); HEMOLYSIS < 15 (0-50); Magnesium 2.1 mg/dL (1.6-2.3); Potassium 4.3 mmol/L (3.4-5.1); Sodium 136 mmol/L (137-145); Total Protein 6.8 g/dL (6.3-8.2)
[2019-12-21] MEDS: METOPROLOL IR 50 MG TABLET PO ×2 (05:58→13:06)
[2019-12-21] MEDS: PANTOPRAZOLE 20 MG TABLET PO (05:58)
[2019-12-21 08:21] LABS: Procalcitonin 0.24 ng/mL (<0.5)
[2019-12-21] MEDS: CEFTRIAXONE 2 GM/50 ML FROZ.PIGGY IV (09:30)
[2019-12-21] MEDS: INSULIN GLARGINE 100 UNIT/ML 3ML PEN 45 UNIT SUBCUT (09:35)
[2019-12-21] MEDS: FUROSEMIDE 40 MG/4 ML VIAL IV ×2 (09:39→16:30)
[2019-12-21] MEDS: INSULIN ASPART 100 UNIT/ML INSULN PEN SUBCUT ×4 (09:43→20:32)
[2019-12-21] MEDS: LOSARTAN 50 MG TABLET PO ×2 (10:05→20:45)
--- NOTE | 2019-12-21 10:32 | PM.PN.1 ---
Subjective Subjective Date Patient Seen: 12/21/19 Interval history: Brenda Schreiber 74-year-old female who is a poor historian with a past medical history significant for hypertension, hyperlipidemia, diabetes mellitus type 2, insulin using, with polyneuropathy, NORM on CPAP, GERD, asthma, and overactive bladder who presented to the ED complaining of 1-2 days of progressive worsening shortness of breath. The patient is resting comfortably in bedside chair. She does not appear toxic. She continues to be in atrial fibrillation with improvement in rapid ventricular rate with average heart rate in the 110s. The amiodarone gtt has finished. Continue to treat pneumonia. Patient reports less congestion and mild intermittent nonproductive cough. She denies wheezing. She denies orthopnea. She has no complaints and denies headache, chest pain, shortness of breath, abdominal pain, nausea, vomiting, fever, chills, dysuria, diarrhea or constipation. She is voiding and eliminating without difficulty. She is up ambulating with assistance. Improved. Exam Vital Signs (past 8 hours): - 12/21/19 04:18 12/21/19 08:00 Temperature 97.5 F L 96.7 F L Pulse Rate 107 H 106 H Respiratory Rate 16 19 Blood Pressure 138/77 127/71 Pulse Oximetry 93 96 Oxygen Delivery Method CPAP Oxygen Flow Rate 0 Narrative Exam Narrative: General: Older female lying in bed and in no acute distress, well-developed, well-nourished, mild dementia with short-term memory recall deficit but otherwise appropriately interactive. HEENT: Normocephalic, atraumatic. External ears without defect. Pupils equal, round, and reactive to light. Anicteric sclerae, moist conjunctivae, and no lid lag. Oropharynx free of erythema and cobble stoning with moist mucosa. Neck: Supple with full range of motion. No jugular venous distension. No lymphadenopathy or thyromegaly. Cardiovascular: Irregularly irregular, tachycardic, without murmurs, rubs, or gallops appreciated. Pulmonary: Diminished throughout with better aeration and clear to auscultation with occasional end-expiratory wheeze. No obvious rhonchi or crackles. Normal respiratory effort without use of accessory muscles. Tachypnea resolved. Abdomen: Soft, obese, bowel sounds present, nontender, nondistended. Extremities: No clubbing, cyanosis, or edema. Skin: Normal temperature, turgor, and texture; no rash, ulcers, or subcutaneous nodules appreciated. Neurological: Cranial nerves grossly intact. Psychiatric: Normal mood and affect. Alert and oriented to person, place, and time. Mild dementia with short-term memory recall deficit. Objective Labs Result Diagrams: 12/21/19 04:48 12/21/19 04:48 Labs: Laboratory Results - last 24 hr 12/20/19 12/20/19 12/20/19 05:26 11:20 13:05 WBC RBC Hgb Hct MCV MCH MCHC RDW Plt Count Neut % (Auto) Lymph % (Auto) [place] % (Auto) Eos % (Auto) Baso % (Auto) Neut # (Auto) Lymph # (Auto) [place] # (Auto) Eos # (Auto) Baso # (Auto) Sodium Potassium Chloride Carbon Dioxide BUN Creatinine Estimated GFR BUN/Creatinine Ratio Glucose Hemoglobin A1c Lactate 1.9 Calcium Magnesium Total Bilirubin AST ALT Alkaline Phosphatase Total Creatine Kinase CK-MB (CK-2) CK-MB (CK-2) Rel Index Troponin I Total Protein Albumin Globulin Albumin/Globulin Ratio Procalcitonin Free T4 1.20 Nasal Screen MRSA (PCR) Negative for mrsa Chlamy pneumoniae PCR Adenovirus (PCR) B.parapertussis DNA PCR Coronavirus OC43 (PCR) Coronavirus HKU1 (PCR) Coronavirus 229E (PCR) Coronavirus NL63 (PCR) Human Metapneumovir PCR Influenza Type A (PCR) Influenza Type B (PCR) M. pneumoniae (PCR) Parainfluenza 1 (PCR) Parainfluenza 2 (PCR) Parainfluenza 3 (PCR) Parainfluenza 4 (PCR) RSV (PCR) Entero/Rhino (PCR) 12/20/19 12/20/19 12/20/19 14:24 17:45 18:07 WBC RBC Hgb Hct MCV MCH MCHC RDW Plt Count Neut % (Auto) Lymph % (Auto) [place] % (Auto) Eos % (Auto) Baso % (Auto) Neut # (Auto) Lymph # (Auto) [place] # (Auto) Eos # (Auto) Baso # (Auto) Sodium 136 L Potassium 4.1 Chloride 99 Carbon Dioxide 30 BUN 15 Creatinine 0.88 Estimated GFR > 60.0 BUN/Creatinine Ratio 17.0 Glucose 295 H Hemoglobin A1c Lactate Calcium 8.9 Magnesium Total Bilirubin 1.2 AST 35 ALT 36 H Alkaline Phosphatase 85 Total Creatine Kinase 91 CK-MB (CK-2) TNP CK-MB (CK-2) Rel Index TNP Troponin I 0.015 Total Protein 6.5 Albumin 3.8 Globulin 2.7 Albumin/Globulin Ratio 1.4 Procalcitonin Free T4 Nasal Screen MRSA (PCR) Chlamy pneumoniae PCR Not detected Adenovirus (PCR) Not detected B.parapertussis DNA PCR Not detected Coronavirus OC43 (PCR) Not detected Coronavirus HKU1 (PCR) Not detected Coronavirus 229E (PCR) Not detected Coronavirus NL63 (PCR) Not detected Human Metapneumovir PCR Not detected Influenza Type A (PCR) Not detected Influenza Type B (PCR) Not detected M. pneumoniae (PCR) Not detected Parainfluenza 1 (PCR) Not detected Parainfluenza 2 (PCR) Not detected Parainfluenza 3 (PCR) Not detected Parainfluenza 4 (PCR) Not detected RSV (PCR) Not detected Entero/Rhino (PCR) Not detected 12/20/19 12/20/19 12/21/19 18:07 18:07 04:48 WBC 12.2 H RBC 4.04 Hgb 12.9 Hct 38.1 MCV 94.4 MCH 31.9 MCHC 33.8 RDW 13.1 Plt Count 141 L Neut % (Auto) 69.4 Lymph % (Auto) 26.6 [place] % (Auto) 3.2 Eos % (Auto) 0.1 L Baso % (Auto) 0.7 Neut # (Auto) 8500 H Lymph # (Auto) 3300 [place] # (Auto) 400 Eos # (Auto) 0 Baso # (Auto) 100 Sodium Potassium Chloride Carbon Dioxide BUN Creatinine Estimated GFR BUN/Creatinine Ratio Glucose Hemoglobin A1c 12.5 H Lactate Calcium Magnesium 1.9 Total Bilirubin AST ALT Alkaline Phosphatase Total Creatine Kinase CK-MB (CK-2) CK-MB (CK-2) Rel Index Troponin I Total Protein Albumin Globulin Albumin/Globulin Ratio Procalcitonin Free T4 Nasal Screen MRSA (PCR) Chlamy pneumoniae PCR Adenovirus (PCR) B.parapertussis DNA PCR Coronavirus OC43 (PCR) Coronavirus HKU1 (PCR) Coronavirus 229E (PCR) Coronavirus NL63 (PCR) Human Metapneumovir PCR Influenza Type A (PCR) Influenza Type B (PCR) M. pneumoniae (PCR) Parainfluenza 1 (PCR) Parainfluenza 2 (PCR) Parainfluenza 3 (PCR) Parainfluenza 4 (PCR) RSV (PCR) Entero/Rhino (PCR) 12/21/19 12/21/19 04:48 04:48 WBC RBC Hgb Hct MCV MCH MCHC RDW Plt Count Neut % (Auto) Lymph % (Auto) [place] % (Auto) Eos % (Auto) Baso % (Auto) Neut # (Auto) Lymph # (Auto) [place] # (Auto) Eos # (Auto) Baso # (Auto) Sodium 136 L Potassium 4.3 Chloride 100 Carbon Dioxide 28 BUN 21 H Creatinine 0.75 Estimated GFR > 60.0 BUN/Creatinine Ratio 28.0 H Glucose 380 H Hemoglobin A1c Lactate Calcium 9.0 Magnesium 2.1 Total Bilirubin 1.4 H AST 32 ALT 36 H Alkaline Phosphatase 89 Total Creatine Kinase CK-MB (CK-2) CK-MB (CK-2) Rel Index Troponin I Total Protein 6.8 Albumin 4.0 Globulin 2.8 Albumin/Globulin Ratio 1.4 Procalcitonin 0.24 Free T4 Nasal Screen MRSA (PCR) Chlamy pneumoniae PCR Adenovirus (PCR) B.parapertussis DNA PCR Coronavirus OC43 (PCR) Coronavirus HKU1 (PCR) Coronavirus 229E (PCR) Coronavirus NL63 (PCR) Human Metapneumovir PCR Influenza Type A (PCR) Influenza Type B (PCR) M. pneumoniae (PCR) Parainfluenza 1 (PCR) Parainfluenza 2 (PCR) Parainfluenza 3 (PCR) Parainfluenza 4 (PCR) RSV (PCR) Entero/Rhino (PCR) Assessment & Plan Assessment & Plan narrative: Brenda Schreiber 74-year-old female who is a poor historian with a past medical history significant for hypertension, hyperlipidemia, diabetes mellitus type 2, insulin using, with polyneuropathy, NORM on CPAP, GERD, asthma, and overactive bladder who presented to the ED complaining of 1-2 days of progressive worsening shortness of breath. 1. Acute atrial fibrillation with RVR, present on admission. Improving. -Patient presented to the ED with significant dyspnea and was found to be in atrial fibrillation with RVR with heart rate in the 140s. -Received diltiazem 20 mg IV x1 in ED without significant improvement in heart rate. The patient was then received amiodarone bolus over 10 minutes and started on amiodarone gtt without significant improvement in heart rate. She was then given metoprolol 5 mg IV x3 doses without any improvement in heart rate. Continue to treat underlying etiology of pneumonia as below. -EKG demonstrated atrial fibrillation with RVR without acute ischemic changes such as ST elevation or depression. Troponin within normal limits at 0.024 and trended down to 0.015. Continue to monitor closely on telemetry. -TSH slightly at 5.40 but free T4 normal at 1.20. -CTA chest did not demonstrate pulmonary embolism. -Continue to monitor electrolytes and replete as necessary. Goal K 4.0 and Mg 2.0. -Received amiodarone gtt for 24 hours. Started metoprolol tartrate increased from 50 mg to 75 mg every 6 hours. May need to add diltiazem 30 mg every 6 hours for better rate control. Continue to treat underlying infection as below. Continue to monitor patient's hemodynamics closely and if patient becomes unstable with significant tachycardia and hypotension will need to be cardioverted. 2. Acute cardiogenic induced pulmonary edema and probable new diastolic congestive heart failure with exacerbation, present on admission. Resolving. -Chest x-ray demonstrated mild CHF/fluid overload. -CTA chest demonstrated mild effusions with increased vascularity consistent with pulmonary edema. -Continue to monitor strict I&Os and daily weights. Net - 800 mL. -Continue heart healthy/carbohydrate consistent and 1.5 L fluid-restricted diet. -Received furosemide 40 mg IV x1 in ED. Continue furosemide 40 mg IV twice daily. -Echocardiogram demonstrated normal left ventricular thickness, size, wall motion, and systolic function with EF 55-60%, diastolic function could not be assessed due to atrial fibrillation, RV is mildly dilated with systolic function at the lower limits of normal, left atrium is moderately dilated, and no significant valvular abnormalities. 3. Acute bilateral bacterial pneumonia, present on admission. Active. -CTA chest demonstrated multiple areas of patchy and nodular opacity particularly on the right consistent with pneumonia and mediastinal, hilar and upper abdominal adenopathy likely reactive but neoplasm not ruled out and recommend repeat CT in 4-6 weeks after resolution of pneumonia. -Initial WBC 14.4 and procalcitonin 0.29. WBC trending down now 12.2 and procalcitonin 0.24. Continue to monitor WBC and procalcitonin daily. -Ordered complete pneumonia workup including: Respiratory viral PCR negative. COVID-19 negative x2. Sputum culture not able to be obtained. Blood cultures x2 have no growth to date. -Continue ceftriaxone 2 g IV daily and azithromycin 500 mg x 3 doses total. 4. Asthma with acute exacerbation, present on admission. Resolved. -Patient had conversational dyspnea, shortness of breath at rest and wheezing on admission. -Consulted respiratory therapy for evaluation and treatment. Continue Xopenex nebulizer treatment every 4 hours as needed for shortness of breath or wheezing. Received methylprednisolone 60 mg IV x 1 and prednisone 40 mg x 1 with resolution of shortness of breath and wheezing. 5. Diabetes mellitus type 2, insulin using, chronic, present on admission. Stable. -Hemoglobin A1c 12.6% indicative of significantly poor glycemic control. -Held home metformin. -Continue [facility] blood glucose checks and high-dose correctional scale insulin. -Held home NPH and started Lantus increased from 45 to 50 units twice daily for better glycemic control. -Continue heart healthy/carbohydrate consistent diet. 6. Obstructive sleep apnea on CPAP, chronic, present on admission. Stable. -Continue home CPAP. 7. GERD, chronic, present on admission. Stable. -CTA chest demonstrated hiatal hernia with distal esophageal thickening circumferentially thicker than typically expected with hiatal hernia and recommend upper endoscopy which can be performed as an outpatient. -Continue equivalent of home omeprazole with Protonix 20 mg daily. 8. Hypertension, chronic, present on admission. Stable. -Continue home amlodipine 5 mg daily and losartan 50 mg twice daily. Held hydrochlorothiazide while diuresing with IV furosemide as above. 9. Hyperlipidemia, chronic, present on admission. Stable. -Continue home aspirin 81 mg daily and simvastatin 20 mg daily at bedtime. 10. Overactive bladder, chronic, present on admission. Stable. -Continue equivalent of home trospium 20 mg twice daily with oxybutynin ER 5 mg daily. 11. Morbid obesity, chronic, present on admission. Stable. -BMI 39.6. -Recommended lifestyle modification including: diet and exercise which were discussed in detail. -Consulted dietitian and we appreciate her time and recommendations. 12. Mild dementia with short-term memory recall deficit, chronic, present on admission. Stable. -Patient's spouse reports that the patient has had progressive worsening short-term memory loss over the last 6 months and ?wandering? at night. -Occupational therapy performed SLUMS which patient scored a 16/30 indicative of mild dementia. -Continue to reorient and remind frequently. Code status: Full code, surrogate decision maker is designated as patient's spouse VTE prophylaxis: Cyndi Tierney Disposition: Patient likely to discharge home in 1-2 days once pneumonia adequately treated and atrial fibrillation is controlled.
--- NOTE | 2019-12-21 10:38 | CM.DANOTE ---
Discharge Planning/Care Management DCP: assessment: case received, EMR reviewed and met with pt after Team Rounds. Dr. Chávez noted that she had already met with pt, who seemed to show some signs of memory loss and thus was going to speak in more details later with pt's . Introduced self and role. Pt is a 74 year old female who admitted yesterday to care of hospitalist team. PCP: Dr. Garcia (pt and her live in [facility] and were here on a trip to [facility]). Payer: [employer]. Admission status: in review: per UR TYRA Lee. Pt appeared alert and oriented during our brief discussion and stated she was functionally independent without an assistive device. Dr. Chávez has ordered OT to eval pt to include SLUMS testing. PT is also ordered. Anticipate at this time that pt will d/c to home setting with her when stable for same and followup on recommendations from Dr. Chávez with her PCP but will be following as more is known for assist with any d/c needs that may arise. CM Discharge Assessment Start: 12/21/19 10:35 Freq: Status: Active Protocol: Document 12/21/19 10:35 ITV (Rec: 12/21/19 10:38 ITV [id number]) Discharge Planning Assessment Advance Directives? Yes History Provided By Patient,Medical Record Prior Living Arrangements House Household Members spouse Independent with ADL's Yes Review Status In Process
[2019-12-21] MEDS: guaiFENesin ER 600 MG TAB 1200 MG PO ×2 (10:39→20:45)
--- NOTE | 2019-12-21 11:10 | PT.IIE ---
Surgical History (Last Updated 12/20/19 @ 23:45 by Christina Chávez DO) History of tonsillectomy (Acute) Medical History (Last Updated 12/20/19 @ 23:45 by Christina Chávez DO) Asthma (Acute) B12 deficiency (Acute) Carpal tunnel syndrome (Acute) Diabetes mellitus type 2 in obese (Acute) Diabetic polyneuropathy (Acute) GERD (gastroesophageal reflux disease) (Acute) Humeral fracture (Acute) Hyperlipidemia (Acute) Hypertension (Acute) Morbid obesity (Acute) NORM on CPAP (Acute) Osteoarthritis (Acute) Overactive bladder (Acute) Venous insufficiency (Acute) Physical Therapy Inpatient Evaluation/Re-Eval M1 PT/OT-IP Prior Functional Status Start: 12/21/19 12:37 Freq: NEEDED Status: Active Protocol: Document 12/21/19 11:10 AB (Rec: 12/21/19 12:52 AB [id number]) Medical Review Prior Functional Status Medical History Reviewed Yes Communication able to make needs known Mobility and Gait pt staed that she is indpendnet with all mobilities and ambulation without AD Social History Household Members spouse Living Arrangements House Number of Floors (Floors) One Floor Number of Stairs To Enter/Railing? 1 step to enter Home Environment High Toilet,Walk in Shower Home Equipment Hand Held Shower,Grab Bars Near Toilet,Grab Bars In Shower Additional Social History Comment pt lives in [place], [place] and is just here for a vacation M2 PT-IP Current Condition Start: 12/21/19 12:37 Freq: NEEDED Status: Active Protocol: Document 12/21/19 11:10 AB (Rec: 12/21/19 12:52 AB [id number]) Physical Therapy Current Condition Current Condition Evaluation Date 12/21/19 Treatment Diagnosis A-flutter; adenopathy; difficulty in walking Onset Date 12/20/19 M3 PT-IP Subjective Start: 12/21/19 12:37 Freq: NEEDED Status: Active Protocol: Document 12/21/19 11:10 AB (Rec: 12/21/19 12:52 AB [email or web address]) Subjective Physical Therapy Visit Type Type Initial Evaluation Visit Start Time 11:10 Visit Stop Time 11:53 Total Visit Minutes 43 Number of WEDGER MACHINE Visits 0 Physical Therapy Visit Comments Patient Comments pt is agreeable to do PT Therapy Pain Assessment Pain Present Pain Present Denied Pain M4 PT-IP Mobility and Gait Start: 12/21/19 12:37 Freq: NEEDED Status: Active Protocol: Document 12/21/19 11:10 AB (Rec: 12/21/19 12:52 AB [id number]) PT-Bed Mobility Assessment Supine to Sit Supine to Sit Independent PT-Transfer Assessment Sit to and From Stand Sit to and from Stand Independent Equipment Transfer Assistive Device None,Gait Belt Transfers Transfer Destination Toilet Transfer Technique ambulated without AD Transfer Ability Level of Assist Standby Assistance Comments Mobility Comments pt completed bed mobility independent. completed sit to stand mod I and ambulated towards the toilet without AD supervision. able to complete toileting wihtout assist and ambulated towards the sink supervision. pt sat on chair. HR increases to 136 bpm and RR to 39 breaths/min during activity. required rest breaks in between tasks. pt agreed to do further mobility. completed up/down step stool SBA. completed tinetti balance assessment . pt also completed further ambulation in room supervision ~ 40 ft. pt agreed to sit up on chair. positioned pt on chair. call light and table placed within reach. informed pt regarding current mobility and safety needs and that no further PT intervention indicated at this time. informed pt that current limiting factor is her A-flutter/ and respiration affecting activity tolerance and is a medical issue but pt can continue mobilizing/ ambulating with nurse as pt only requires SBA at this time without AD for safety. SBA needed for safety due to pt's current medical issue and not due to physical mobility concerns. Informed nurse and understood. Gait Assessment Gait Gait Assistance Required: Standby Assistance Distance (Feet) 40 Able to Maintain Weight Bearing Status Yes During Gait Assistive Devices Assistive Device None,Gait Belt Factors Limiting Gait Function Factors Limiting Gait Function Decreased Activity Tolerance Comments Gait Comments pls refer to mobility section for details; pt has not LOB during ambulation (+) SOB but O2 sat at 96% but with increase HR to ~ 136 bmp and RR of 39 Stair Climbing Assessment Evaluation Level of Assist On Stairs Standby Assistance Devices Stair Climbing Assistive Devices None Technique/Endurance Stair Climbing Direction Ascend and Descend Stair Climbing Technique Step to Step Number of Steps Climbed 1 Query Text: Stair Climbing Set # Repetitions (reps) 2 PT-Balance Assessment Sitting Balance and Reactions Static Sitting Balance Ability Normal Dynamic Sitting Balance Ability Normal Standing Balance and Reactions Static Standing Balance Ability Good Dynamic Standing Balance Ability Good Device Used without AD Functional Assessments Functional Tests Tinetti Balance and Gait Assessment : low fall risk M5 PT-IP Objective Assessments Start: 12/21/19 12:37 Freq: NEEDED Status: Active Protocol: Document 12/21/19 11:10 AB (Rec: 12/21/19 12:52 AB [email or web address]) Orientation Orientation/Cognition Level of Alertness Alert Orientation Name,Age,Birthday,Month,Date, Year,Day of Week,Place, Situation Language Function Ability No Deficits Noted Safety Awareness Understands Safety Issues Memory Description No Deficits Noted Gross Range of Motion Lower Extremity ROM Assessment Within Functional Limits Strength Lower Extremity Strength Assessment Within Functional Limits Coordination Assessment Gross Coordination Gross Coordination WNL Sensation Assessment Sensation Gross Sensation WNL Muscle Tone Muscle Tone WNL Yes M6 PT-IP Treatment Start: 12/21/19 12:37 Freq: NEEDED Status: Active Protocol: Document 12/21/19 11:10 AB (Rec: 12/21/19 12:52 [facility] Physical Therapy Treatment Education Education Provided Safety M7 PT-IP Assessment and Plan Start: 12/21/19 12:37 Freq: NEEDED Status: Active Protocol: Document 12/21/19 11:10 AB (Rec: 12/21/19 12:52 [facility] PT Summary Assessment and Plan Potential Rehabilitation Potential Good Status of Condition at Evaluation Stable Summary Assessment Summary PT eval completed and no further PT intervention indicated at this time. pt is independent with bed mobility , transfers and ambulation without AD with supervision more for safety concerns due to increase HR and RR with activity. Pt may go home when medically stable. Frequency of Treatment Frequency Of Treatment Discharge Recommendations To Nursing Amount of Assist Needed Standby Assistance Discharge Recommendations PT Discharge Recommendations Home with Assistance Transportation Needs at Discharge Private Vehicle
--- NOTE | 2019-12-21 11:35 | PC.NURSE ---
Am shift Pt is A/o x3, forgetful at times, More so than this RN noted yesterday. Spouse on phone for POC update, asked about forgetfuness, which has worsened over the last 6 months significantly. No official diagnosis of dementia. Discussed that it is time for patient to not be in charge of her own insulin/ and medications as she cant remember l
[2019-12-21] MEDS: AZITHROMYCIN 250 MG TABLET 500 MG PO (11:39)
[2019-12-21] MEDS: OXYBUTYNIN 5 MG ER TAB PO (11:40)
[2019-12-21] MEDS: ASPIRIN 81 MG CHEW TAB PO (11:40)
[2019-12-21] MEDS: predniSONE 20 MG TABLET 40 MG PO (12:10)
[2019-12-21] MEDS: MAGNESIUM CHLORIDE 64 MG TABLET PO ×2 (13:04→20:47)
[2019-12-21] MEDS: AMLODIPINE 5 MG TABLET PO (13:05)
--- NOTE | 2019-12-21 13:15 | OT.IP.EVAL ---
Past Medical History (Last Updated 12/20/19 @ 23:45 by Christina Chávez DO) Asthma (Acute) B12 deficiency (Acute) Carpal tunnel syndrome (Acute) Diabetes mellitus type 2 in obese (Acute) Diabetic polyneuropathy (Acute) GERD (gastroesophageal reflux disease) (Acute) Humeral fracture (Acute) Hyperlipidemia (Acute) Hypertension (Acute) Morbid obesity (Acute) NORM on CPAP (Acute) Osteoarthritis (Acute) Overactive bladder (Acute) Venous insufficiency (Acute) Surgical History (Last Updated 12/20/19 @ 23:45 by Christina Chávez DO) History of tonsillectomy (Acute) Occupational Therapy Inpatient Evaluation/Re-Eval M1 PT/OT-IP Prior Functional Status Start: 12/21/19 12:37 Freq: NEEDED Status: Active Protocol: Document 12/21/19 14:54 CGR (Rec: 12/21/19 15:02 CGR [email or web address]) Medical Review Prior Functional Status Medical History Reviewed Yes Communication able to make needs known Mobility and Gait pt staed that she is indpendnet with all mobilities and ambulation without AD Activities of Daily Living and IADL's Pt was IND in all ADLs Social History Household Members spouse Living Arrangements House Number of Floors (Floors) One Floor Number of Stairs To Enter/Railing? 1 step to enter Home Environment High Toilet,Walk in Shower Home Equipment Hand Held Shower,Grab Bars Near Toilet,Grab Bars In Shower Employment Status Retired Additional Social History Comment pt lives in [place], [place] and is just here for a vacation M2 OT-IP Current Condition Start: 12/21/19 14:52 Freq: Status: Active Protocol: Document 12/21/19 14:54 CGR (Rec: 12/21/19 15:02 CGR [email or web address]) Occupational Therapy Current Condition Current Condition Evaluation Date 12/21/19 Treatment Diagnosis SOB, plumonary edema and PNA Diagnosis Onset Date 12/20/19 M3 OT- IP Subjective and Pain Start: 12/21/19 14:52 Freq: Status: Active Protocol: Document 12/21/19 14:54 CGR (Rec: 12/21/19 15:02 CGR [email or web address]) OT- Subjective Occupational Therapy Visit Type Type Initial Evaluation Visit Start Time 12:50 Visit Stop Time 13:15 Total Visit Minutes 25 OT Pain Assessment Pain When Pain Assessed At Rest Pain Present Pain Present Denied Pain M4 OT- IP ADL's Start: 12/21/19 14:52 Freq: Status: Active Protocol: Document 12/21/19 14:54 CGR (Rec: 12/21/19 15:02 CGR [email or web address]) OT [id number] Comments OT Self-Feeding Comments Not meal time OT ADL-Grooming General Evaluation Grooming Ability Independent OT ADL-Oral Care General Eval Oral Care Ability Independent OT ADL-Dressing General Eval Lower Body Dressing Ability Independent Areas Needing Assistance Socks OT ADL-Toileting General Evaluation Toileting Ability Independent OT ADL-Bathing Comments OT Bathing Comments Not assessed M5 OT- IP IADL's Start: 12/21/19 14:52 Freq: Status: Active Protocol: Document 12/21/19 14:54 CGR (Rec: 12/21/19 15:02 CGR [email or web address]) OT-Instrumental Activities of Daily Living Deficits IADL Deficits Identified Deficits Home Safety Awareness Awareness of Need for Assistance at Home Decreased Awareness Ability to Problem Solve Emergency Unable to Problem Solve Situations Money Management Money Management Caregiver Provides Assistance Meal Preparation Meal Preparation Caregiver Provides Assist Vacuum Cleaner Mechanic Vacuum Cleaner Mechanic Caregiver Provides Assist Driving Driving Concerns Identified Regarding Safety Driving Comments Pt is an active delivery driver M6 OT- IP Functional Cognition Start: 12/21/19 14:52 Freq: Status: Active Protocol: Document 12/21/19 14:54 CGR (Rec: 12/21/19 15:02 CGR [email or web address]) Cognitive Factors Limiting Selfcare Function Cognitive Ability Level of Alertness Alert,Confusional State Patient Orientation Name,Age,Birthday,Month,Date, Year,Place,Situation Attention Span Ability Capable of Focused Attention, Capable of Sustained Attention Ability to Follow Commands Able to Follow One Step Commands with Increased Time, Able to Follow One Step Commands with Repetition Cognitive Tests SLUMS Pt participated in the SLUMS scoring a 16/30. Pt was incorrect about the day of the week, was able to state 11 animals in 60 seconds, remembered 1 of the 5 objects for short term memory, and was able to answer only one of the 4 questions about the listening comprehension story. A score of 16/30 puts her into the dementia category of the SLUMS. OT- Vision and Hearing OT- Hearing Assessment OT- Hearing Assessment Hearing Impaired,Use of Hearing Aids OT- Vision Assessment Visual Acuity Glasses All The Time Visual Attentiveness WFL Occular Pursuits WFL Visual Convergence WFL Vision Assessment Comments Pt has trifocals M7 OT- IP Mobility and Balance Start: 12/21/19 14:52 Freq: Status: Active Protocol: Document 12/21/19 14:54 CGR (Rec: 12/21/19 15:02 CGR [email or web address]) OT- Bed Mobility Assessment Supine to Sit Supine to Sit Assist Independent Sit to Supine Sit to Supine Assist Independent Scooting Scooting to Edge of Bed Independent OT-Transfer Assessment Sit to and From Stand Sit to and from Stand Independent Transfers Transfer Ability Independent Technique Transfer Destination Bed,Chair,Toilet Transfer Technique Stand Step Pivot Devices Transfer Assistive Devices None OT- Gait Assessment Gait Gait Assistance Required: Independent Assistive Devices Assistive Device None Comments Gait Ability Comments mobility around the room. OT- Balance Assessment Sitting Balance and Reactions Static Sitting Balance Ability Normal Dynamic Sitting Balance Ability Normal M8 OT- IP Objective Assessments Start: 12/21/19 14:52 Freq: Status: Active Protocol: Document 12/21/19 14:54 CGR (Rec: 12/21/19 15:02 CGR [email or web address]) OT Gross Range of Motion Upper Extremity Range of Motion Assessment Within Functional Limits OT Strength Upper Extremity Strength Assessment Within Functional Limits Comments Strength Comments 4+/5 OT- Coordination Assessment Upper Extremity Finger to Nose Test Within Functional Limits Finger Tapping Test Within Functional Limits OT-Muscle Tone Assessment Muscle Tone WNL Yes OT Sensation Assessment Edema Edema Absent M9 OT- IP Assessment and Plan Start: 12/21/19 14:52 Freq: Status: Active Protocol: Document 12/21/19 14:54 CGR (Rec: 12/21/19 15:02 CGR [email or web address]) OT Summary Assessment and Plan Potential Rehabilitation Potential Good Analytic Complexity at Evaluation Low Summary OT Impairments Functional Cognition,Activity Tolerance Progress Towards Goals Progressing Toward Goals,Safe For Discharge Assessment Summary Pt presents as a low complexity evaluaiton s/p admission for SOB. Pt currently with decreased endurance but she is able to perform her ADLs and functional mobility at this time. Per MD request, SLUMS performed with a score of 16/ 30 indicating that the pt has dementia. Recommend Outpatient OT or ST for cognitive training. No further acute OT needs. Frequency of Treatment Frequency Of Treatment Discharge Discharge Recommendations OT Discharge Recommendations Home with Assistance Transportation Needs at Discharge Private Vehicle
[2019-12-21] MEDS: SIMVASTATIN 20 MG TABLET PO (16:30)
[2019-12-21] MEDS: METOPROLOL IR 50 MG TABLET 75 MG PO (17:53)
[2019-12-21] MEDS: INSULIN GLARGINE 100 UNIT/ML 3ML PEN 50 UNIT SUBCUT (20:33)
[2019-12-21 20:45] LABS: BUN Creatinine Ratio 33.3 (6-22); Blood Urea Nitrogen 32 mg/dL (7-17); Calcium 8.9 mg/dL (8.4-10.2); Carbon Dioxide 30 mmol/L (22-32); Chloride 94 mmol/L (98-107); HEMOLYSIS < 15 (0-50); Potassium 4.9 mmol/L (3.4-5.1); Sodium 131 mmol/L (137-145)
[2019-12-21 20:57] LABS: Glucose 580 mg/dL (80-110)
--- NOTE | 2019-12-21 21:09 | PC.NURSE ---
Pt 2100 blood glucose is 580. STALIN Waddell advised. SS insulin give, 10units Novalog and 50 units Lantus.
[2019-12-21] MEDS: APIXABAN 5 MG TABLET PO (21:14)
--- NOTE | 2019-12-21 21:33 | PC.NURSE ---
Pt arrived in at approx 1630. She was in sinus tach, 100-110, afib rate > 100. She was calm and talking on the phone did not c/o chest px or SOB. Her 1630 blood glucose was 372 with12 units of coverage, and her 2100 was 580. HYDROELECTRIC PLANT ELECTRICIAN advised to give scheduled insulin so she rece'd 10 units Novalog and 50 units Lantus. 10 minutes later her blood glucose was unchanged. HYDROELECTRIC PLANT ELECTRICIAN aware. Pt ate evening meal complied with fluid restriction and is voiding qs. +BTs, LS clear. She has short term memory loss and needs frequent reminders. She is cooperative and pleasant.
[2019-12-22] VITALS (12 sets, daily range): BP systolic 83–129; BP diastolic 49–73; PULSE 56–118; RESP 17–20; TEMP 35.9–36.4; O2SAT 95–97
[2019-12-22] MEDS: METOPROLOL IR 50 MG TABLET 75 MG PO ×3 (00:09→08:44)
[2019-12-22] MEDS: dilTIAZem 30 MG TABLET PO ×2 (00:12→06:15)
--- NOTE | 2019-12-22 03:05 | PC.NURSE ---
YUNG Curry reported that pt had home insulin in a black bag and was informed by the evening PANEL FITTER that, the patient access manager RN will remove it and send to ED. This information was not given during RN shift report. Insulin bag was found in room and locked in pt's drawer. Will pass on to day shift. Pt resting comfortably w/CPAP in place. No c/o of SOB at this time.
[2019-12-22 05:25] LABS: Add Manual Diff / Slide Review NO; Basophils Absolute Auto 100 /uL (0-100); Basophils Percent Auto 0.4 % (0-2); Eosinophils Absolute Auto 0 /uL (0-450); Hematocrit 36.6 % (36-46); Hemoglobin 12.3 g/dL (12.0-16.0); Lymphocytes Absolute Auto 4700 /uL (1100-4500); Lymphocytes Percent Auto 33.2 % (25-40); Mean Corpuscular HGB Conc 33.7 % (30-36); Mean Corpuscular Hemoglobin 31.9 PG (26-34); Mean Corpuscular Volume 94.9 fL (80-100); Monocytes Absolute Auto 800 /uL (0-900); Monocytes Percent Auto 5.4 % (3-14); Neutrophils Absolute Auto 8700 /uL (1500-7000); Platelet Count 172 X10^3/uL (150-400); Red Blood Cell Count 3.86 X10^6/uL (4.0-5.2); Red Cell Distribution Width 13.3 % (11.6-14.8); White Blood Cell Count 14.2 X10^3/uL (4.5-11.0)
[2019-12-22 05:27] LABS: Alanine Aminotransferase 33 IU/L (<35); Albumin 3.7 g/dL (3.5-5.0); Albumin Globulin Ratio 1.4 (1.0-2.8); Alkaline Phosphatase 86 U/L (38-126); Aspartate Aminotransferase 32 IU/L (14-36); BUN Creatinine Ratio 41.6 (6-22); Bilirubin Total 0.9 mg/dL (0.2-1.3); Blood Urea Nitrogen 32 mg/dL (7-17); Calcium 8.7 mg/dL (8.4-10.2); Carbon Dioxide 28 mmol/L (22-32); Chloride 99 mmol/L (98-107); Estimated Glomerular Filt Rate > 60.0 mL/min (>60); Globulin 2.6 g/dL (1.7-4.1); Glucose 370 mg/dL (80-110); HEMOLYSIS < 15 (0-50); Potassium 4.1 mmol/L (3.4-5.1); Sodium 134 mmol/L (137-145); Total Protein 6.3 g/dL (6.3-8.2)
[2019-12-22 05:50] LABS: Procalcitonin 0.12 ng/mL (<0.5)
[2019-12-22] MEDS: PANTOPRAZOLE 20 MG TABLET PO (06:26)
[2019-12-22] MEDS: OXYBUTYNIN 5 MG ER TAB PO (08:27)
[2019-12-22] MEDS: AZITHROMYCIN 250 MG TABLET 500 MG PO (08:27)
[2019-12-22] MEDS: MAGNESIUM CHLORIDE 64 MG TABLET PO ×2 (08:27→20:49)
[2019-12-22] MEDS: dilTIAZem CD 180 MG CAP PO (08:28)
[2019-12-22] MEDS: LOSARTAN 50 MG TABLET PO (08:30)
[2019-12-22] MEDS: ASPIRIN 81 MG CHEW TAB PO (08:30)
[2019-12-22] MEDS: guaiFENesin ER 600 MG TAB 1200 MG PO ×2 (08:31→20:49)
[2019-12-22] MEDS: AMLODIPINE 5 MG TABLET PO (08:31)
[2019-12-22] MEDS: APIXABAN 5 MG TABLET PO ×2 (08:36→20:49)
[2019-12-22] MEDS: CEFTRIAXONE 2 GM/50 ML FROZ.PIGGY IV (08:36)
[2019-12-22] MEDS: FUROSEMIDE 40 MG/4 ML VIAL IV (08:37)
[2019-12-22] MEDS: INSULIN ASPART 100 UNIT/ML INSULN PEN SUBCUT ×3 (08:37→16:21)
[2019-12-22] MEDS: INSULIN GLARGINE 100 UNIT/ML 3ML PEN 50 UNIT SUBCUT (08:38)
[2019-12-22] MEDS: METOPROLOL IR 50 MG TABLET PO (10:48)
[2019-12-22] MEDS: AMIODARONE 200 MG TABLET PO (10:48)
--- NOTE | 2019-12-22 15:16 | P.PN_ITS ---
Subjective Subjective Date Patient Seen: 12/22/19 Interval history: Brenda Schreiber 74-year-old female who is a poor historian with a past medical history significant for hypertension, hyperlipidemia, diabetes mellitus type 2, insulin using, with polyneuropathy, NORM on CPAP, GERD, asthma, and overactive bladder who presented to the ED complaining of 1-2 days of progressive worsening shortness of breath. The patient is resting comfortably in bedside chair. She is eager to discharge home. Her medications were titrated up this morning to better control heart rate with atrial fibrillation. She spontaneously converted from atrial fibrillation to sinus rhythm around 1430 this afternoon. She is finishing treatment for pneumonia. She reports her cough has resolved. She denies shortness of breath, dyspnea on exertion, wheezing, orthopnea, paroxysmal nocturnal dyspnea or periph eral edema. She has poor insight into her medical care due to mild dementia with significant short-term memory impairment. She has no complaints of chest pain, abdominal pain, nausea, vomiting, fever, chills, dysuria, diarrhea or constipation. Her blood glucose has been very difficult to control and continue to titrate up on basal insulin and added prandial insulin. She is voiding and eliminating without difficulty. She is up ambulating with assistance. Exam Vital Signs (past 8 hours): - 12/22/19 04:00 12/22/19 06:15 12/22/19 08:00 Temperature 97.0 F L 96.7 F L Pulse Rate 90 105 H 118 H Respiratory Rate 20 19 Blood Pressure 129/73 121/70 112/57 L Pulse Oximetry 96 96 12/22/19 08:30 12/22/19 09:21 Temperature Pulse Rate 109 H Respiratory Rate 18 Blood Pressure 112/57 L Pulse Oximetry 96 Oxygen Delivery Method Room Air Oxygen Flow Rate 0 Narrative Exam Narrative: General: Older female lying in bed and in no acute distress, well-developed, well-nourished, mild dementia with short-term memory recall deficit but otherwise appropriately interactive. HEENT: Normocephalic, atraumatic. External ears without defect. Pupils equal, round, and reactive to light. Anicteric sclerae, moist conjunctivae, and no lid lag. Oropharynx free of erythema and cobble stoning with moist mucosa. Neck: Supple with full range of motion. No jugular venous distension. No lymphadenopathy or thyromegaly. Cardiovascular: Regular rhythm and rate without murmurs, rubs, or gallops appreciated. Pulmonary: Clear to auscultation throughout all lung watkins without wheezes, rhonchi or crackles. Normal respiratory effort without use of accessory muscles. Tachypnea resolved. Abdomen: Soft, obese, bowel sounds present, nontender, nondistended. Extremities: No clubbing, cyanosis, or edema. Skin: Normal temperature, turgor, and texture; no rash, ulcers, or subcutaneous nodules appreciated. Neurological: Cranial nerves grossly intact. Psychiatric: Normal mood and affect. Alert and oriented to person, place and time. Mild dementia with significant short-term memory recall deficit. Objective Labs Result Diagrams: 12/22/19 05:05 12/22/19 05:05 Labs: Laboratory Results - last 24 hr 12/21/19 12/22/19 12/22/19 20:20 05:05 05:05 WBC 14.2 H RBC 3.86 L Hgb 12.3 Hct 36.6 MCV 94.9 MCH 31.9 MCHC 33.7 RDW 13.3 Plt Count 172 Neut % (Auto) 61.0 Lymph % (Auto) 33.2 [place] % (Auto) 5.4 Eos % (Auto) 0.0 L Baso % (Auto) 0.4 Neut # (Auto) 8700 H Lymph # (Auto) 4700 H [place] # (Auto) 800 Eos # (Auto) 0 Baso # (Auto) 100 Sodium 131 L Potassium 4.9 Chloride 94 L Carbon Dioxide 30 BUN 32 H Creatinine 0.96 Estimated GFR 57.0 L BUN/Creatinine Ratio 33.3 H Glucose 580 H* D Calcium 8.9 Magnesium 2.0 Total Bilirubin AST ALT Alkaline Phosphatase Total Protein Albumin Globulin Albumin/Globulin Ratio Procalcitonin 0.12 12/22/19 05:05 WBC RBC Hgb Hct MCV MCH MCHC RDW Plt Count Neut % (Auto) Lymph % (Auto) [place] % (Auto) Eos % (Auto) Baso % (Auto) Neut # (Auto) Lymph # (Auto) [place] # (Auto) Eos # (Auto) Baso # (Auto) Sodium 134 L Potassium 4.1 Chloride 99 Carbon Dioxide 28 BUN 32 H Creatinine 0.77 Estimated GFR > 60.0 BUN/Creatinine Ratio 41.6 H Glucose 370 H D Calcium 8.7 Magnesium 2.0 Total Bilirubin 0.9 AST 32 ALT 33 Alkaline Phosphatase 86 Total Protein 6.3 Albumin 3.7 Globulin 2.6 Albumin/Globulin Ratio 1.4 Procalcitonin Assessment & Plan Assessment & Plan narrative: Brenda Schreiber 74-year-old female who is a poor historian with a past medical history significant for hypertension, hyperlipidemia, diabetes mellitus type 2, insulin using, with polyneuropathy, NORM on CPAP, GERD, asthma, and overactive bladder who presented to the ED complaining of 1-2 days of progressive worsening shortness of breath. 1. Acute paroxysmal atrial fibrillation with RVR, present on admission. Resolved. -Patient presented to the ED with significant dyspnea and was found to be in atrial fibrillation with RVR with heart rate in the 140s. -Received diltiazem 20 mg IV x1 in ED without significant improvement in heart rate. The patient was then received amiodarone bolus over 10 minutes and started on amiodarone gtt without significant improvement in heart rate. She was then given metoprolol 5 mg IV x3 doses without any improvement in heart rate. Continue to treat underlying etiology of pneumonia as below. -EKG demonstrated atrial fibrillation with RVR without acute ischemic changes such as ST elevation or depression. Troponin within normal limits at 0.024 and trended down to 0.015. Continue to monitor closely on telemetry. Patient spontaneously converted to sinus rhythm around 1430 today. -TSH slightly at 5.40 but free T4 normal at 1.20. -CTA chest did not demonstrate pulmonary embolism. -Continue to monitor electrolytes and replete as necessary. Goal K > 4.0 and Mg > 2.0. -Received amiodarone gtt for 24 hours. Continue amiodarone 200 mg daily, metoprolol succinate 100 mg daily, and diltiazem CD 180 mg daily and follow-up with cardiology in 1-2 weeks (PCP Dr. Garcia in [place], [place] will need to refer patient to cardiology). 2. Acute cardiogenic induced pulmonary edema and probable new diastolic congestive heart failure with exacerbation, present on admission. Resolved. -Chest x-ray demonstrated mild CHF/fluid overload. -CTA chest demonstrated mild effusions with increased vascularity consistent with pulmonary edema. -Continue to monitor strict I&Os and daily weights. Net - 1.5 mL. -Continue heart healthy/carbohydrate consistent and 1.5 L fluid-restricted diet. -Echocardiogram demonstrated normal left ventricular thickness, size, wall motion, and systolic function with EF 55-60%, diastolic function could not be assessed due to atrial fibrillation, RV is mildly dilated with systolic function at the lower limits of normal, left atrium is moderately dilated, and no significant valvular abnormalities. -Received furosemide 40 mg IV x1 in ED. Discontinued furosemide 40 mg IV twice daily after morning dose as patient appears euvolemic. Plan to start and discharge home on furosemide 40 mg daily tomorrow. 3. Acute bilateral bacterial pneumonia, present on admission. Active. -CTA chest demonstrated multiple areas of patchy and nodular opacity particularly on the right consistent with pneumonia and mediastinal, hilar and upper abdominal adenopathy likely reactive but neoplasm not ruled out and recommend repeat CT in 4-6 weeks after resolution of pneumonia. -Initial WBC 14.4 and procalcitonin 0.29. WBC trending down now 12.2 and procalcitonin 0.24. Continue to monitor WBC and procalcitonin daily. -Ordered complete pneumonia workup including: Respiratory viral PCR negative. COVID-19 negative x2. Sputum culture not able to be obtained. Blood cultures x2 have no growth to date. -Continue ceftriaxone 2 g IV daily and completed azithromycin 500 mg x 3 doses. 4. Asthma with acute exacerbation, present on admission. Resolved. -Patient had conversational dyspnea, shortness of breath at rest and wheezing on admission. -Consulted respiratory therapy for evaluation and treatment. Continue Xopenex nebulizer treatment every 4 hours as needed for shortness of breath or wheezing. Received methylprednisolone 60 mg IV x 1 and prednisone 40 mg x 1 with resolution of shortness of breath and wheezing. 5. Diabetes mellitus type 2, insulin using, chronic, present on admission. Stable. -Hemoglobin A1c 12.6% indicative of significantly poor glycemic control. -Restarted home metformin 1000 mg twice daily. -Continue [facility] blood glucose checks and high-dose correctional scale insulin. -Discontinued home NPH and started Lantus increased from 45 to 55 units twice daily and added prandial insulin with NovoLog 10 units 3 times daily with meals for better glycemic control. -Continue heart healthy/carbohydrate consistent diet. 6. Obstructive sleep apnea on CPAP, chronic, present on admission. Stable. -Continue home CPAP. 7. GERD, chronic, present on admission. Stable. -CTA chest demonstrated hiatal hernia with distal esophageal thickening circumferentially thicker than typically expected with hiatal hernia and recommend upper endoscopy which can be performed as an outpatient. -Continue equivalent of home omeprazole with Protonix 20 mg daily. 8. Hypertension, chronic, present on admission. Stable. -Continue home amlodipine 5 mg daily and losartan 50 mg twice daily. Discontinued hydrochlorothiazide and continue diuresing with furosemide as above. 9. Hyperlipidemia, chronic, present on admission. Stable. -Continue home aspirin 81 mg daily and simvastatin 20 mg daily at bedtime. 10. Overactive bladder, chronic, present on admission. Stable. -Continue equivalent of home trospium 20 mg twice daily with oxybutynin ER 5 mg daily. 11. Morbid obesity, chronic, present on admission. Stable. -BMI 39.6. -Recommended lifestyle modification including: diet and exercise which were discussed in detail. -Consulted dietitian and we appreciate her time and recommendations. 12. Mild dementia with short-term memory recall deficit, chronic, present on admission. Stable. -Patient's spouse reports that the patient has had progressive worsening short- term memory loss over the last 6 months and ?wandering? at night. -Occupational therapy performed SLUMS which patient scored a +16/30 indicative of mild dementia. -Continue to reorient and remind frequently. Code status: Full code, surrogate decision maker is designated as patient's spouse VTE prophylaxis: Cyndi Tierney Disposition: Patient likely to discharge home tomorrow if heart rate remains controlled.
[2019-12-22] MEDS: SIMVASTATIN 20 MG TABLET PO (16:20)
[2019-12-22] MEDS: INSULIN ASPART 100 UNIT/ML INSULN PEN 10 UNIT SUBCUT (16:21)
[2019-12-22] MEDS: INSULIN GLARGINE 100 UNIT/ML 3ML PEN 55 UNIT SUBCUT (20:48)
[2019-12-22] MEDS: METFORMIN HCL 500 MG TABLET 1000 MG PO (20:49)
[2019-12-22] MEDS: ACETAMINOPHEN 325 MG TABLET 650 MG PO (20:49)
[2019-12-23] VITALS (7 sets, daily range): BP systolic 88–138; BP diastolic 42–68; PULSE 58–66; RESP 16–20; TEMP 36.3–36.4; O2SAT 95–97
--- NOTE | 2019-12-23 04:36 | PC.NURSE ---
vital signs taken at 0005, first BP was 77/40, second BP was 88/43, and third BP was 94/47, pt was asymptomatic, Pat Waddell notified at time of event, no new orders given.
[2019-12-23] MEDS: PANTOPRAZOLE 20 MG TABLET PO (05:22)
[2019-12-23 05:33] LABS: Add Manual Diff / Slide Review NO; Basophils Absolute Auto 100 /uL (0-100); Basophils Percent Auto 0.7 % (0-2); Eosinophils Absolute Auto 100 /uL (0-450); Eosinophils Percent Auto 1.1 % (2-4); Hematocrit 36.3 % (36-46); Hemoglobin 12.4 g/dL (12.0-16.0); Lymphocytes Absolute Auto 5800 /uL (1100-4500); Lymphocytes Percent Auto 52.9 % (25-40); Mean Corpuscular HGB Conc 34.1 % (30-36); Mean Corpuscular Hemoglobin 32.1 PG (26-34); Mean Corpuscular Volume 94.2 fL (80-100); Monocytes Absolute Auto 600 /uL (0-900); Monocytes Percent Auto 5.9 % (3-14); Neutrophils Absolute Auto 4300 /uL (1500-7000); Neutrophils Percent Auto 39.4 % (50-75); Platelet Count 211 X10^3/uL (150-400); Red Blood Cell Count 3.85 X10^6/uL (4.0-5.2); Red Cell Distribution Width 12.9 % (11.6-14.8); White Blood Cell Count 10.9 X10^3/uL (4.5-11.0)
[2019-12-23 05:45] LABS: Alanine Aminotransferase 43 IU/L (<35); Albumin 3.7 g/dL (3.5-5.0); Albumin Globulin Ratio 1.4 (1.0-2.8); Alkaline Phosphatase 72 U/L (38-126); Aspartate Aminotransferase 48 IU/L (14-36); Bilirubin Total 0.5 mg/dL (0.2-1.3); Blood Urea Nitrogen 40 mg/dL (7-17); Carbon Dioxide 30 mmol/L (22-32); Chloride 102 mmol/L (98-107); Estimated Glomerular Filt Rate 48.2 mL/min (>60); Globulin 2.7 g/dL (1.7-4.1); Glucose 71 mg/dL (80-110); HEMOLYSIS < 15 (0-50); Magnesium 2.2 mg/dL (1.6-2.3); Potassium 3.4 mmol/L (3.4-5.1); Sodium 138 mmol/L (137-145); Total Protein 6.4 g/dL (6.3-8.2)
[2019-12-23] MEDS: METFORMIN HCL 500 MG TABLET 1000 MG PO (08:24)
[2019-12-23] MEDS: AMIODARONE 200 MG TABLET PO (08:25)
[2019-12-23] MEDS: ASPIRIN 81 MG CHEW TAB PO (08:26)
[2019-12-23] MEDS: CEFTRIAXONE 2 GM/50 ML FROZ.PIGGY IV (08:26)
[2019-12-23] MEDS: APIXABAN 5 MG TABLET PO (08:26)
[2019-12-23] MEDS: dilTIAZem CD 180 MG CAP PO (08:27)
[2019-12-23] MEDS: guaiFENesin ER 600 MG TAB 1200 MG PO (08:27)
[2019-12-23] MEDS: LOSARTAN 50 MG TABLET PO (08:27)
[2019-12-23] MEDS: METOPROLOL ER 50 MG TABLET 100 MG PO (08:28)
[2019-12-23] MEDS: MAGNESIUM CHLORIDE 64 MG TABLET PO (08:28)
[2019-12-23] MEDS: OXYBUTYNIN 5 MG ER TAB PO (08:29)
[2019-12-23] MEDS: INSULIN ASPART 100 UNIT/ML INSULN PEN 10 UNIT SUBCUT (08:31)
[2019-12-23] MEDS: INSULIN GLARGINE 100 UNIT/ML 3ML PEN 45 UNIT SUBCUT (08:31)
--- NOTE | 2019-12-23 09:09 | P.DS_ITS ---
History of Present Illness History of Present Illness Date Patient Seen: 12/23/19 Time Patient Seen: 09:09 Chief complaint: difficulty breathing Narrative: As per Gisell Augustineubaldo Schreiber 74-year-old female who is a poor historian with a past medical history significant for hypertension, hyperlipidemia, diabetes mellitus type 2, insulin using, with polyneuropathy, NORM on CPAP, GERD, asthma, and overactive bladder who presented to the ED complaining of 1-2 days of progressive worsening shortness of breath. The patient is from [place], [place] and was visiting [facility] when she began having shortness of breath. She reports congestion in her chest, wheezing, shortness of breath at rest, dyspnea on exertion and orthopnea. She does endorse dry nonproductive cough. She denies headache, sore throat, rhinitis, chest pain, fever, chills, back pain, extremity pain, dysuria, diarrhea or constipation. She endorses feeling clammy/diaphoretic and has a cool towel on forehead. She denies sick contacts or exposure to COVID-19. She has no history of atrial fibrillation or congestive heart failure. She has mild conversational dyspnea and audible wheezing during interview. The patient reports she does not feel that bad but appears clearly ill. ED course: Patient was found to be in atrial fibrillation with RVR in the 140s. Received diltiazem 20 mg IV x1 without improvement in heart rate. Chest x-ray performed demonstrated mild pulmonary vascular congestion and edema with probable CHF. Received Lasix 40 mg IV x1. Received amiodarone bolus and started on amiodarone gtt and was in 2:1 atrial flutter with little change in rapid ventricular rate. CTA chest was performed in ruled out pulmonary embolism and demonstrated bilateral pneumonia. Performed blood cultures, lactic acid, and received ceftriaxone 2 g IV x1 and azithromycin 500 mg IV x1. Patient was admitted as an inpatient for atrial fibrillation with RVR, CHF, pneumonia and asthma exacerbation. PCP is Dr. Garcia in [place], [place] Discharge Providers Provider Date of admission: 12/20/19 09:07 Discharge Date: 12/23/19 Consults: 12/21/19 09:46 Consult to Dietitian, Adult Routine Comment: refresher Reason For Exam: Diabetic education. 12/21/19 10:36 Consult to Occupational Therapy Evaluate & Treat Comment: [facility] Physician Instructions: Evaluate and treat Consult to Physical Therapy Evaluate & Treat Comment: Physician Instructions: Evaluate and Treat Discharge provider: Mike Vaca DO Summary Hospital Course Discharge Diagnosis: Please see hospital course by problem list noted below. Hospital Course: Brenda Schreiber 74-year-old female who is a poor historian with a past medical history significant for hypertension, hyperlipidemia, diabetes mellitus type 2, insulin using, with polyneuropathy, NORM on CPAP, GERD, asthma, and overactive bladder who presented to the ED complaining of 1-2 days of progressive worsening shortness of breath admitted for afib with RVR and acute pulmonary edema which improved with therapies. 1. Acute paroxysmal atrial fibrillation with RVR, present on admission. Resolved. -Patient presented to the ED with significant dyspnea and was found to be in atrial fibrillation with RVR with heart rate in the 140s. -Received diltiazem 20 mg IV x1 in ED without significant improvement in heart rate. The patient was then received amiodarone bolus over 10 minutes and started on amiodarone gtt without significant improvement in heart rate. She was then given metoprolol 5 mg IV x3 doses without any improvement in heart rate. Improved with continued amiodarone and treatment of pneumonia as noted below. -EKG demonstrated atrial fibrillation with RVR without acute ischemic changes such as ST elevation or depression. Troponin within normal limits at 0.024 and trended down to 0.015. Continue to monitor closely on telemetry. Patient spontaneously converted to sinus rhythm around 1430 today. -TSH slightly at 5.40 but free T4 normal at 1.20. -CTA chest did not demonstrate pulmonary embolism. -Continue to monitor electrolytes and replete as necessary. Goal K > 4.0 and Mg > 2.0. -Received amiodarone gtt for 24 hours. Continue amiodarone 200 mg daily, metoprolol succinate 100 mg daily, and diltiazem CD 180 mg daily and follow-up with cardiology in 1-2 weeks (PCP Dr. Garcia in [place], [place] will need to refer patient to cardiology). 2. Acute cardiogenic induced pulmonary edema and probable new diastolic congestive heart failure with exacerbation, present on admission. Resolved. -Chest x-ray demonstrated mild CHF/fluid overload. -CTA chest demonstrated mild effusions with increased vascularity consistent with pulmonary edema. -Echocardiogram demonstrated normal left ventricular thickness, size, wall motion, and systolic function with EF 55-60%, diastolic function could not be a ssessed due to atrial fibrillation, RV is mildly dilated with systolic function at the lower limits of normal, left atrium is moderately dilated, and no significant valvular abnormalities. -Received furosemide 40 mg IV x1 in ED. Discontinued furosemide 40 mg IV twice daily after morning dose as patient appeared euvolemic. Held further furosemide given patient in sinus rhythm upon discharge. May need to restart as an outpatient. 3. Acute bilateral bacterial pneumonia, present on admission. Active. -CTA chest demonstrated multiple areas of patchy and nodular opacity particularly on the right consistent with pneumonia and mediastinal, hilar and upper abdominal adenopathy likely reactive but neoplasm not ruled out and recommend repeat CT in 4-6 weeks after resolution of pneumonia. -Initial WBC 14.4 and procalcitonin 0.29. WBC improved on discharge. -Ordered complete pneumonia workup including: Respiratory viral PCR negative. COVID-19 negative x2. Sputum culture not able to be obtained. Blood cultures x2 have no growth to date. -Continued on ceftriaxone and azithromycin while admitted with significant improvement and does not require further antibiotics on discharge. 4. Asthma with acute exacerbation, present on admission. Resolved. -Patient had conversational dyspnea, shortness of breath at rest and wheezing on admission. -Consulted respiratory therapy for evaluation and treatment. Continue Xopenex nebulizer treatment every 4 hours as needed for shortness of breath or wheezing. Received methylprednisolone 60 mg IV x 1 and prednisone 40 mg x 1 with resolution of shortness of breath and wheezing and no further steroids were given. 5. Diabetes mellitus type 2, insulin using, chronic, present on admission. Stable. -Hemoglobin A1c 12.6% indicative of significantly poor glycemic control. -No changes recommended at this time. PCP follow up recommended on discharge. 6. Obstructive sleep apnea on CPAP, chronic, present on admission. Stable. -Continued home CPAP. 7. GERD, chronic, present on admission. Stable. -CTA chest demonstrated hiatal hernia with distal esophageal thickening circumferentially thicker than typically expected with hiatal hernia and recom mend upper endoscopy which can be performed as an outpatient. -Continued equivalent of home omeprazole with Protonix 20 mg daily. 8. Hypertension, chronic, present on admission. Stable. -Continued home amlodipine 5 mg daily and losartan 50 mg twice daily. 9. Hyperlipidemia, chronic, present on admission. Stable. -Continued home aspirin 81 mg daily and simvastatin 20 mg daily at bedtime. 10. Overactive bladder, chronic, present on admission. Stable. -Continued equivalent of home trospium 20 mg twice daily with oxybutynin ER 5 mg daily. 11. Morbid obesity, chronic, present on admission. Stable. -BMI 39.6. Patient at increased risk for complications from her pneumonia and atrial fibrillation due to her obesity. -Recommended lifestyle modification including: diet and exercise which were discussed in detail. -Consulted dietitian and we appreciate her time and recommendations. 12. Mild dementia with short-term memory recall deficit, chronic, present on admission. Stable. -Patient's spouse reports that the patient has had progressive worsening short- term memory loss over the last 6 months and ?wandering? at night. -Occupational therapy performed [facility] which patient scored a +16/30 indicative of mild dementia. -outpatient PCP follow up. Time Spent with Patient Time spent: Greater than 30 minutes Exam Vital Signs (past 8 hours): - 12/23/19 05:30 12/23/19 08:00 12/23/19 08:27 Temperature 97.4 F L 97.6 F Pulse Rate 65 66 65 Respiratory Rate 18 20 Blood Pressure 113/61 128/58 L 128/68 Pulse Oximetry 95 97 12/23/19 08:28 Temperature Pulse Rate 65 Respiratory Rate Blood Pressure 138/68 Pulse Oximetry Oxygen Delivery Method Room Air,CPAP Oxygen Flow Rate 0 Narrative Exam Narrative: General: Older female lying in bed and in no acute distress, well-developed, well-nourished, mild dementia with short-term memory recall deficit but otherwise appropriately interactive. HEENT: Normocephalic, atraumatic. External ears without defect. Pupils equal, round, and reactive to light. Anicteric sclerae, moist conjunctivae, and no lid lag. Oropharynx free of erythema and cobble stoning with moist mucosa. Neck: Supple with full range of motion. No jugular venous distension. No lymphadenopathy or thyromegaly. Cardiovascular: Regular rhythm and rate without murmurs, rubs, or gallops appreciated. Pulmonary: Clear to auscultation throughout all lung watkins without wheezes, rhonchi or crackles. Normal respiratory effort without use of accessory muscles. Tachypnea resolved. Abdomen: Soft, obese, bowel sounds present, nontender, nondistended. Extremities: No clubbing, cyanosis, or edema. Skin: Normal temperature, turgor, and texture; no rash, ulcers, or subcutaneous nodules appreciated. Neurological: Cranial nerves grossly intact. Psychiatric: Normal mood and affect. Alert and oriented to person, place and time. Mild dementia with significant short-term memory recall deficit. Objective Labs Result Diagrams: 12/23/19 05:20 12/23/19 05:20 Labs: Laboratory Results - last 24 hr 12/23/19 12/23/19 12/23/19 05:20 05:20 05:20 WBC 10.9 RBC 3.85 L Hgb 12.4 Hct 36.3 MCV 94.2 MCH 32.1 MCHC 34.1 RDW 12.9 Plt Count 211 Neut % (Auto) 39.4 L D Lymph % (Auto) 52.9 H Hardeman % (Auto) 5.9 Eos % (Auto) 1.1 L Baso % (Auto) 0.7 Neut # (Auto) 4300 Lymph # (Auto) 5800 H Hardeman # (Auto) 600 Eos # (Auto) 100 Baso # (Auto) 100 Sodium 138 Potassium 3.4 Chloride 102 Carbon Dioxide 30 BUN 40 H Creatinine 1.11 H Estimated GFR 48.2 L BUN/Creatinine Ratio 36.0 H Glucose 71 L D Calcium 9.0 Magnesium 2.2 Total Bilirubin 0.5 AST 48 H ALT 43 H Alkaline Phosphatase 72 Total Protein 6.4 Albumin 3.7 Globulin 2.7 Albumin/Globulin Ratio 1.4 Procalcitonin 0.10 Discharge Plan Discharge Plan Patient Disposition: Home Discharge comment: You were admitted to the hospital with Atrial fibrillation and shortness of breath which is likely due to diastolic heart failure. You could have had a pneumonia which was adequately treated while you were admitted to the hospital and you do not require further antibiotic therapy at home. Please schedule a follow up with your [facility] in [facility], and you will likely need a referral to cardiology. Discharge orders & Medications Prescriptions: New losartan 50 mg Tablet 50 mg PO DAILY 30 Days Qty: 30 RF: 0 amiodarone 200 mg Tablet 200 mg PO DAILY 30 Days Qty: 30 RF: 0 Eliquis 5 mg Tablet 5 mg PO BID 30 Days Qty: 60 RF: 0 diltiazem HCl [Cardizem CD] 180 mg Capsule,Extended Release 24hr 180 mg PO DAILY 30 Days Qty: 30 RF: 0 metoprolol succinate 100 mg tablet extended release 24 hr 100 mg PO DAILY 30 Days Qty: 30 RF: 0 Continued simvastatin 20 mg Tablet 20 mg PO QPM RF: 0 metformin 1,000 mg Tablet 1,000 mg PO BID RF: 0 Humulin N NPH U-100 Insulin 100 unit/mL Suspension See Rx Instructions .ROUTE .COMPLEX RF: 0 aspirin 81 mg Tablet,Chewable 81 mg PO DAILY RF: 0 albuterol sulfate 90 mcg/actuation Hfa Aerosol Inhaler 1 - 4 puff INHALATION Q4HR PRN (Reason: Respiratory Distress) RF: 0 trospium 20 mg Tablet 20 mg PO BID RF: 0 omeprazole 20 mg Tablet,Delayed Release (Dr/Ec) 20 mg PO DAILY RF: 0 Discontinued losartan 50 mg Tablet 50 mg PO BID RF: 0 triamcinolone acetonide 0.5 % Cream 1 applic TOPICAL BID RF: 0 amlodipine 5 mg Tablet 5 mg PO DAILY RF: 0 hydrochlorothiazide 25 mg Tablet 25 mg PO DAILY RF: 0 Visit Report/Discharge Packet Instructions: Diabetes and Cardiovascular Disease: What's the Link?, Type 2 Diabetes, DI for Heart Failure, DI for Prescription Opioid Use Visit Report Forms: Congestive Heart Failure, Patient Portal/API, Stroke Signs & Symptoms Discharges patient from system. Discharge Date/Time: 12/23/19 11:26
--- NOTE | 2019-12-23 09:50 | PC.NURSE ---
Patient had low glucose this AM and low BP over night. Dr. Vaca notified, changed medication regimen. Patient refused 10 units of Novolog this AM, since her blood sugar was 68. Patient had a run of [facility] per [facility] and patient checked and was asymptomatic. Dr. Vaca notified.
--- NOTE | 2019-12-23 11:02 | PC.NURSE ---
All discharge teaching done for patient regarding new medications, s/s of stroke, discharge teaching done about diet and exercise. Patient given instructions with follow up care w/ primary doctor. Daughter and patient verbalized understanding of all discharge teaching. Patient left facility w/ all belongings and with her own insulin brought from home.
--- NOTE | 2019-12-23 11:09 | CM.DPC ---
DCP Cont: Discussed patient during team rounds. She will be discharged home today with no needs. Patient and are from [place], [place]. They were visiting on [facility] with symptoms of shortness of breath occurred. P: Patient will be discharged home today with no needs. Tosin Fernández RN/[employer] Wrapping Machine Tender
== END 2019-12-23 11:26 | disposition home or self-care (01) | DRG 291 ==
LOC: ED 09:04 → AC 09:10 → ICU 10:32 → AC 12-21 16:25
PROVIDERS: Emergency Medicine; Admitting Provider Internal Medicine; Emergency Provider Emergency Medicine; Referring Provider Emergency Medicine; Visit Provider Internal Medicine
DX: I11.0 Hypertensive heart disease with heart failure (principal); I50.31 Acute diastolic (congestive) heart failure; J15.9 Unspecified bacterial pneumonia; J45.901 Unspecified asthma with (acute) exacerbation; I48.0 Paroxysmal atrial fibrillation; E66.01 Morbid (severe) obesity due to excess calories; Z68.39 Body mass index [BMI] 39.0-39.9, adult; F03.90 Unspecified dementia, unspecified severity, without behavioral disturbance, psychotic disturbance, mood disturbance, and anxiety; E78.5 Hyperlipidemia, unspecified; E11.65 Type 2 diabetes mellitus with hyperglycemia; Z79.4 Long term (current) use of insulin; E11.42 Type 2 diabetes mellitus with diabetic polyneuropathy; G47.33 Obstructive sleep apnea (adult) (pediatric); K21.9 Gastro-esophageal reflux disease without esophagitis; N32.81 Overactive bladder; Z91.83 Wandering in diseases classified elsewhere; Z11.59 Encounter for screening for other viral diseases; Z87.891 Personal history of nicotine dependence
CPT/HCPCS: 36415; 36592; 71045; 71275; 80048; 80053; 81001; 81003; 82550; 82553; 82962; 83036; 83605; 83735; 83880; 84145; 84439; 84443; 84484; 85025; 85379; 85610; 87040; 87086; 87633; 87635; 87797; 93005; 93306; 94640; 94760; 94762; 96365; 96366; 96368; 96372; 96375; 97129; 97161; 97165; 97530; 99285; J0282; J0696; J1650; J1940; J2930; J7614; Q9967